=== PATIENT | male | born 1995 | race Caucasian/White ===

== ENCOUNTER 2020-01-27 16:38 | Emergency (ER) | payer BC, SELFPAY ==
[2020-01-27 17:40] VITALS: BP 136/90; PULSE 118; RESP 16; TEMP 36.1; O2SAT 97
[2020-01-27 17:48] LABS: Glucose Point of Care 197 (65-105)
[2020-01-27 18:09] LABS: Alanine Aminotransferase 201 U/L (4-50); Albumin Level 4.6 g/dL (3.5-5.1); Alkaline Phosphatase 90 U/L (38-126); Anion Gap 11 mmol/L (8-16); Aspartate Amino Transferase 191 U/L (17-59); Bilirubin,Total 0.5 mg/dL (0.2-1.3); Blood Urea Nitrogen 11 mg/dL (9-20); Calcium 10.2 mg/dL (8.4-10.2); Carbon Dioxide 32 mmol/L (22-30); Chloride 94 mmol/L (98-107); Estimated CRCL calculation 143 ml/min; Estimated Glomerular Filt Rate > 60; Glucose 189 mg/dL (75-110); Phosphorus 3.5 mg/dL (2.5-4.5); Sodium 137 mmol/L (137-145)
[2020-01-27 18:11] VITALS: BP 142/102; PULSE 115; RESP 22; O2SAT 99
[2020-01-27 18:12] LABS: Alveolar/Arterial O2 Gradient 15.6 mmHg; Base Excess ABG 2.1 mEq/l (+/-2.0); Carboxyhemoglobin 0.7 % THb (0-2.0); Fractional Inspired Oxygen 21 %; HCO3 ABG 26.1 mEq/l (22.0-26.0); Methemoglobin ABG 0.5 %THb (0-1.5); Oxygen Content ABG 24.4 %vol (16.0-22.0); Oxyhemoglobin 95.9 % THb (90.0-100.0); PO2 ABG 87.4 mmHg (80.0-100.0); PO2 FiO2 Ratio Arterial Blood 4.16 %; Reduced Hemoglobin 2.9 %THb (0-5.0); Total Hemoglobin 18.1 g/dL (12.0-18.0); pH ABG 7.444 (7.350-7.450)
[2020-01-27 18:13] LABS: Device ROOM AIR; Modified Allen's Test Pass; Site Drawn RIGHT RADIAL
[2020-01-27 18:15] LABS: Add Urine Microscopic? YES; Appearance Urine Clear (Clear); Bilirubin Urine Negative (Negative); Blood Urine 1+ (Negative); Color Urine Straw (Yellow); Glucose Urine UA 2+ mg/dL (Negative); Ketones Urine Negative (Negative); Leukocyte Esterase Ur Negative LEU/UL (Negative); Nitrate Urine Negative (Negative); Protein Urine Negative (Negative); RBC Urine 0-2 /hpf (0-2); Specific Grav Ur 1.006 (1.001-1.035); Urobilinogen Urine Negative mg/dL (<2.0); WBC Urine 0-3 /hpf
[2020-01-27] MEDS: SODIUM CHLORIDE 0.9% IV 1,000 ML 999 ML IV CONT (18:16)
--- NOTE | 2020-01-27 18:19 | ED.GENADULT ---
HPI - General Adult General Chief complaint: Unspecified Stated complaint: Possible DKA Time Seen by Provider: 01/27/20 17:55 Source: patient Mode of arrival: ambulatory Limitations: no limitations History of Present Illness HPI narrative: Patient complaining of I might be still in DKA , described as I feel lightheaded and not feeling as well started yesterday. Patient states that he took his urine ketones and it showed large yesterday so he drank a lot of water took his insulin but he usually does and this morning when he checked his ketones it was actually negative. This afternoon he started to be felt a little unwell so I checked my ketones again and it showed small , so came here to make sure he is not in DKA. Patient denies any headache, dizziness, nausea vomiting, diarrhea or fever. Patient denies any chest pain, shortness of breath or abdominal pain. Related Data Home Medications Medication Instructions Recorded Confirmed insulin aspart U-100 100 unit/mL 1 unit SUB-Q TID ml 03/29/19 05/30/19 (3 mL) subcutaneous pen insulin glargine 100 unit/mL (3 25 unit SUB-Q DAILY 03/29/19 05/30/19 mL) subcutaneous pen Allergies Allergy/AdvReac Type Severity Reaction Status Date / Time No Known Allergies Allergy Verified 01/27/20 18:13 Review of Systems Review of Systems: All systems reviewed & are unremarkable except as noted in HPI and below Constitutional: Constitutional: Denies body ache(s), Denies chills, Denies excessive sweating, Denies fatigue, Denies fever(s), Denies headache(s), Denies lethargy, Denies malaise, Denies weakness and Denies weight loss Eyes: Eyes: Denies blurry vision, Denies change in vision and Denies loss of vision ENT: Denies dizziness, Denies ear discharge, Denies headache(s), Denies lip swelling, Denies epistaxis, Denies nasal congestion, Denies neck pain, Denies throat swelling and Denies tongue swelling Cardiovascular: Cardiovascular: Denies chest pain, Denies chest pain at rest, Denies chest pain with activity, Denies diaphoresis, Denies rapid heart rate, Denies edema, Denies irregular heart rhythm, Denies lightheadedness, Denies palpitations, Denies dyspnea and Denies dyspnea on exertion Respiratory: Respiratory: Denies chest congestion, Denies cough, Denies hemoptysis, Denies dyspnea and Denies dyspnea on exertion Gastrointestinal: Gastrointestinal: Denies abdominal pain, Denies melena, Denies hematochezia, Denies diarrhea, Denies nausea, Denies vomiting and Denies hematemesis Musculoskeletal: Musculoskeletal: Denies abnormal gait, Denies deformity, Denies joint swelling, Denies limited range of motion, Denies neck pain and Denies numbness Neurologic: Denies Abnormal speech present, Denies abnormal gait, Denies confusion, Denies dizziness, Denies headache(s), Denies focal weakness, Denies loss of vision, Denies numbness, Denies Other visual disturbances, Denies Sensory deficit (Neuro) and Denies weakness Psychiatric: Psychiatric: Denies confusion, Denies depression, Denies auditory hallucinations, Denies homicidal ideation and Denies suicidal ideation Endocrine: Endocrine: Denies cold intolerance, Denies excessive sweating, Denies fatigue, Denies heat intolerance and Denies palpitations Hematologic/Lymphatic: Hematologic/Lymphatic: Denies easy bleeding and Denies easy bruising Allergic/Immunologic: Allergic/Immunologic: Denies lip swelling, Denies throat swelling and Denies tongue swelling PMFSH Past Medical History Medical History (Updated 01/27/20 @ 20:56 by Alexander Lucio MD) Acute bronchitis Cough Diabetes Diabetes mellitus, insulin dependent (IDDM), uncontrolled Mixed hyperlipidemia Type 1 diabetes mellitus with hyperglycemia, without long-term current use of insulin Type 1 diabetes mellitus with long-term current use of insulin URI (upper respiratory infection) Vitamin D insufficiency Social History Social History (Updated 03/29/19 @ 10:56 by Sadia Barrientos MA)
[2020-01-27 18:32] LABS: Basophils Absolute Auto 0.1 K/mm3 (0.0-0.1); Eosinophils Absolute Auto 0.1 K/mm3 (0-0.3); Eosinophils Percent Auto 1.2 % (0-4.4); Hematocrit 50.3 % (42.0-52.0); Hemoglobin 17.9 g/dL (14.0-18.0); Immature Granulocyte Absolute 0.04 K/mm3 (0.00-0.031); Immature Granulocyte Percent A 0.7 % (0-0.5); Lymphocytes Absolute Auto 1.44 K/mm3 (0.9-3.2); Lymphocytes Percent Auto 24.2 % (18.3-44.2); Mean Corpuscular HGB Conc 35.6 g/dl (32-36); Mean Corpuscular Hemoglobin 30.6 pg (26-34); Mean Platelet Volume 8.7 fl (7.4-10.4); Monocytes Absolute Auto 0.5 K/mm3 (0.1-0.6); Monocytes Percent Auto 8.1 % (2.6-8.5); Neutrophils Absolute Auto 3.9 K/mm3 (1.3-6.7); Neutrophils Percent Auto 64.8 % (45.5-73.1); Platelet Count Result 380 k/mm3 (150-375); Red Blood Count 5.85 M/mm3 (4.6-6.20); Red Cell Distribution Width 11.7 % (11.5-14.5)
[2020-01-27 18:50] LABS: Beta-Hydroxybutyrate/Acetoacetate 0.33 mmol/L (0.02-0.27)
[2020-01-27 19:03] VITALS: BP 117/91; PULSE 94; RESP 20; O2SAT 98
[2020-01-27] MEDS: LACTATED RINGERS 1,000 ML 999 ML IV CONT (20:01)
[2020-01-27 20:04] VITALS: BP 103/87; PULSE 127; RESP 18; O2SAT 97
[2020-01-27 21:10] VITALS: BP 110/74; PULSE 84; RESP 20; O2SAT 98
[2020-01-27 21:18] VITALS: BP 110/74; PULSE 93; RESP 14; O2SAT 97
== END 2020-01-27 21:20 | disposition home or self-care (01) ==
PROVIDERS: Emergency Provider Emergency Medicine; PCP Family Medicine
DX: E10.65 Type 1 diabetes mellitus with hyperglycemia (principal); Z79.4 Long term (current) use of insulin; E78.2 Mixed hyperlipidemia
CPT/HCPCS: 36415; 36600; 80053; 81001; 82010; 82375; 82805; 82948; 83050; 83735; 84100; 85025; 96360; 96361; 99283; J7030; J7120

== ENCOUNTER 2020-03-18 13:21 | Emergency (ER) | payer BC, SELFPAY ==
[2020-03-18 13:34] LABS: Glucose Point of Care 98 (65-105)
[2020-03-18 13:37] VITALS: BP 144/94; PULSE 108; RESP 16; TEMP 36.8; O2SAT 98
--- NOTE | 2020-03-18 13:46 | ED.GENADULT ---
HPI - General Adult General Chief complaint: Nausea/Vomiting/Diarrhea Stated complaint: vomiting/diabetic Time Seen by Provider: 03/18/20 13:33 Source: patient History of Present Illness HPI narrative: Patient is a 24 y/o male complaining of nausea and vomiting starting this morning. He states that he vomited 4 times and it's mostly liquid. There is no alleviating or exacerbating factor. He denies any abdominal pain, diarrhea or SOB. He has type 1 diabetes. Related Data Home Medications Medication Instructions Recorded Confirmed insulin aspart U-100 100 unit/mL 1 unit SUB-Q TID ml 03/29/19 05/30/19 (3 mL) subcutaneous pen insulin glargine 100 unit/mL (3 25 unit SUB-Q DAILY 03/29/19 05/30/19 mL) subcutaneous pen Allergies Allergy/AdvReac Type Severity Reaction Status Date / Time No Known Allergies Allergy Verified 03/18/20 13:40 Review of Systems Constitutional: Constitutional: Denies chills, Denies fever(s), Denies headache(s) and Denies weakness Eyes: Eyes: Denies blurry vision ENT: Denies headache(s) and Denies neck pain Cardiovascular: Cardiovascular: Denies chest pain and Denies dyspnea Respiratory: Respiratory: Denies cough and Denies dyspnea Gastrointestinal: Gastrointestinal: Denies abdominal pain, Denies diarrhea, Reports nausea and Reports vomiting Genitourinary: Genitourinary: Denies hematuria and Denies dysuria Musculoskeletal: Musculoskeletal: Denies back pain and Denies neck pain Neurologic: Denies headache(s) and Denies weakness PMFSH Past Medical History Medical History Acute bronchitis Cough Diabetes Diabetes mellitus, insulin dependent (IDDM), uncontrolled Elevated liver enzymes Mixed hyperlipidemia Type 1 diabetes mellitus with hyperglycemia, without long-term current use of insulin Type 1 diabetes mellitus with long-term current use of insulin URI (upper respiratory infection) Vitamin D insufficiency Social History Social History Smoking status: Never smoker Alcohol intake: current Substance use: never Gender identity (if verbalized by the patient): Male Exam Const: General: no acute distress and well developed Orientation/consciousness: oriented to person, oriented to place, oriented to time and patient oriented x3 HENMT: Head: normocephalic Ears: external ears normal General nose exam: Normal external nose present Eyes: General: appearance normal, both eyes and all related structures Conjunctivae: conjunctivae normal Neck: Neck: normal visual inspection and full ROM Chest: Chest palpation & inspection: normal inspection of the chest and no tenderness Resp: Effort & Inspection: normal respiratory effort Auscultation: clear to auscultation bilaterally Cardio: Rate: regular rate Rhythm: regular rhythm GI: GI Palp: No abdominal tenderness and Yes Soft to palpation Skin: General skin exam: normal color and turgor normal Neuro: General: oriented to person, oriented to place, oriented to time and patient oriented x3 Cognition (Neuro): normal cognition Extrem: General: normal to inspection, full ROM and no pedal edema Psych: Appearance: grossly normal Mental Status: mental status grossly normal Affect: normal affect Course Reevaluation(s) Reevaluation #1: Rechecked. Patient feels well. He has no nausea or vomiting. Date: 03/18/20 Time: 15:58 Vital Signs Vital signs: Vital Signs Temperature 36.8 C 03/18/20 13:37 Pulse Rate 108 H 03/18/20 13:37 Respiratory Rate 16 03/18/20 13:37 Blood Pressure 144/94 H 03/18/20 13:37 Pulse Oximetry 98 03/18/20 13:37 Temperature 36.8 C 03/18/20 13:37 Pulse Rate 108 H 03/18/20 13:37 Respiratory Rate 16 03/18/20 13:37 Blood Pressure 144/94 H 03/18/20 13:37 Pulse Oximetry 98 03/18/20 13:37 Medical Decision Making [facility] Narrative Medical decision making narrative: Maryellen ghosh
[2020-03-18 13:49] LABS: Basophils Absolute Auto 0.1 K/mm3 (0.0-0.1); Basophils Percent Auto 1.1 % (0.2-1.2); Eosinophils Absolute Auto 0.1 K/mm3 (0-0.3); Eosinophils Percent Auto 1.7 % (0-4.4); Hematocrit 46.8 % (42.0-52.0); Hemoglobin 16.7 g/dL (14.0-18.0); Immature Granulocyte Absolute 0.01 K/mm3 (0.00-0.031); Immature Granulocyte Percent A 0.2 % (0-0.5); Lymphocytes Absolute Auto 1.98 K/mm3 (0.9-3.2); Lymphocytes Percent Auto 30.2 % (18.3-44.2); Mean Corpuscular HGB Conc 35.7 g/dl (32-36); Mean Corpuscular Hemoglobin 29.8 pg (26-34); Mean Corpuscular Volume 83.4 fl (80-100); Mean Platelet Volume 8.8 fl (7.4-10.4); Monocytes Absolute Auto 0.5 K/mm3 (0.1-0.6); Monocytes Percent Auto 7.5 % (2.6-8.5); Neutrophils Absolute Auto 3.9 K/mm3 (1.3-6.7); Neutrophils Percent Auto 59.3 % (45.5-73.1); Platelet Count Result 379 k/mm3 (150-375); Red Blood Count 5.61 M/mm3 (4.6-6.20); Red Cell Distribution Width 11.2 % (11.5-14.5); White Blood Count 6.6 K/mm3 (4.5-10.0)
[2020-03-18 14:05] LABS: Beta-Hydroxybutyrate/Acetoacetate 1.61 mmol/L (0.02-0.27)
[2020-03-18] MEDS: SODIUM CHLORIDE 0.9% IV 1,000 ML 999 ML IV CONT (14:11)
[2020-03-18] MEDS: ONDANSETRON INJ 4 MG/2 ML VIAL IV PUSH (14:12)
[2020-03-18 14:15] VITALS: BP 142/90; PULSE 102; RESP 20; O2SAT 96
[2020-03-18 14:29] LABS: Alanine Aminotransferase 57 U/L (4-50); Albumin Level 4.9 g/dL (3.5-5.1); Alkaline Phosphatase 97 U/L (38-126); Anion Gap 10 mmol/L (8-16); Aspartate Amino Transferase 53 U/L (17-59); Bilirubin,Total 0.9 mg/dL (0.2-1.3); Blood Urea Nitrogen 13 mg/dL (9-20); Carbon Dioxide 27 mmol/L (22-30); Chloride 95 mmol/L (98-107); Estimated CRCL calculation 164 ml/min; Estimated Glomerular Filt Rate > 60; Glucose 96 mg/dL (75-110); Sodium 132 mmol/L (137-145)
[2020-03-18 14:45] VITALS: BP 137/81; PULSE 92; RESP 18; O2SAT 98
[2020-03-18 14:45] LABS: Potassium 3.9 mmol/L (3.4-5.0)
[2020-03-18 15:15] VITALS: BP 141/84; PULSE 97; RESP 20; O2SAT 99
[2020-03-18 15:35] LABS: Glucose Point of Care 58 (65-105)
--- NOTE | 2020-03-18 15:35 | PC.NURSE ---
blood sugar is 58 1535
[2020-03-18 15:45] VITALS: BP 136/84; PULSE 114; RESP 14; O2SAT 98
--- NOTE | 2020-03-18 16:05 | PC.NURSE ---
repeat FSBS 167. patient with no further N/V. ok to be discharged.
[2020-03-18 16:23] LABS: Glucose Point of Care 168 (65-105)
== END 2020-03-18 16:25 | disposition home or self-care (01) ==
PROVIDERS: Emergency Medicine; Emergency Provider Emergency Medicine; PCP Family Medicine
DX: R11.2 Nausea with vomiting, unspecified (principal); E10.9 Type 1 diabetes mellitus without complications; Z79.4 Long term (current) use of insulin; E78.2 Mixed hyperlipidemia
CPT/HCPCS: 36415; 80053; 82010; 82948; 85025; 96361; 96374; 99284; J2405; J7030

== ENCOUNTER 2020-05-29 12:52 | Outpatient (RCR) | payer BC, SELFPAY ==
[2020-05-29] MEDS: ACETAMINOPHEN 325 MG TABLET 650 MG PO (13:33)
[2020-05-29] MEDS: FAMOTIDINE 20 MG TABLET PO (13:33)
[2020-05-29] MEDS: diphenhydrAMINE HCl CAP 25 MG CAPSULE PO (13:33)
[2020-05-29 13:48] VITALS: BP 132/86; PULSE 90; RESP 18; TEMP 36.8; O2SAT 98
[2020-05-29 15:10] VITALS: BP 143/86; PULSE 81; RESP 18; O2SAT 99
--- NOTE | 2020-05-30 09:44 | PC.NURSE ---
follow up call on covid infusion on 05-29-20. Patient states he is feeling much better with no side effects.
== END 2020-05-30 15:41 | disposition home or self-care (01) ==
LOC: AMCINF 12:52
PROVIDERS: PCP Family Medicine; Visit Provider Internal Medicine Hematology & Oncology
DX: Z23 Encounter for immunization (principal); U07.1 COVID-19; E11.9 Type 2 diabetes mellitus without complications
CPT/HCPCS: A9270; M0239; Q0239

== ENCOUNTER 2020-06-10 10:12 | Emergency (ER) | payer BC, SELFPAY ==
[2020-06-10] VITALS (17 sets, daily range): BP systolic 130–160; BP diastolic 73–103; PULSE 81–110; RESP 16; TEMP 36.2; O2SAT 97
--- NOTE | ~2020-06-10 | XR_ITS ---
EXAMINATION: XR chest 1V portable 06/10/2020 10:54 INDICATION: Cough PROCEDURE: AP portable chest COMPARISON: 05/22/2018 FINDINGS: The lungs are clear. The cardiomediastinal silhouette is within normal limits. There are no pleural effusions. There is no pneumothorax suspected. IMPRESSION: 1: NO ACUTE CARDIOPULMONARY DISEASE. Reviewed, dictated and finalized at location A.
[2020-06-10] MEDS: SODIUM CHLORIDE 0.9% IV 1,000 ML 999 ML IV CONT ×2 (10:40→12:29)
[2020-06-10 11:00] LABS: Alveolar/Arterial O2 Gradient 12.7 mmHg; Base Excess ABG -0.4 mEq/l (+/-2.0); Carboxyhemoglobin 0.6 % THb (0-2.0); Fractional Inspired Oxygen 21 %; HCO3 ABG 23.8 mEq/l (22.0-26.0); Methemoglobin ABG 0.4 %THb (0-1.5); Oxygen Content ABG 21.6 %vol (16.0-22.0); Oxygen Saturation ABG 97.1 % (95.0-100.0); Oxyhemoglobin 95.8 % THb (90.0-100.0); PCO2 ABG 38.1 mmHg (35.0-45.0); PO2 ABG 91.4 mmHg (80.0-100.0); PO2 FiO2 Ratio Arterial Blood 4.35 %; Reduced Hemoglobin 3.2 %THb (0-5.0); pH ABG 7.414 (7.350-7.450)
[2020-06-10 11:01] LABS: Device ROOM AIR; Modified Allen's Test Pass; Site Drawn RIGHT RADIAL
[2020-06-10 11:20] LABS: Basophils Absolute Auto 0.1 K/mm3 (0.0-0.1); Basophils Percent Auto 0.8 % (0.2-1.2); Eosinophils Absolute Auto 0.2 K/mm3 (0-0.3); Eosinophils Percent Auto 2.5 % (0-4.4); Hematocrit 45.6 % (42.0-52.0); Hemoglobin 15.8 g/dL (14.0-18.0); Immature Granulocyte Absolute 0.02 K/mm3 (0.00-0.031); Immature Granulocyte Percent A 0.3 % (0-0.5); Lymphocytes Percent Auto 29.8 % (18.3-44.2); Mean Corpuscular HGB Conc 34.6 g/dl (32-36); Mean Corpuscular Hemoglobin 29.9 pg (26-34); Mean Corpuscular Volume 86.4 fl (80-100); Mean Platelet Volume 8.7 fl (7.4-10.4); Monocytes Absolute Auto 0.4 K/mm3 (0.1-0.6); Monocytes Percent Auto 7.1 % (2.6-8.5); Neutrophils Absolute Auto 3.6 K/mm3 (1.3-6.7); Neutrophils Percent Auto 59.5 % (45.5-73.1); Platelet Count Result 441 k/mm3 (150-375); Red Blood Count 5.28 M/mm3 (4.6-6.20); Red Cell Distribution Width 11.9 % (11.5-14.5); White Blood Count 6.1 K/mm3 (4.5-10.0)
--- NOTE | 2020-06-10 11:35 | ED.GENADULT ---
HPI - General Adult General Chief complaint: Shortness of Breath/Dyspnea Stated complaint: cough, short of breath, left lung pain Time Seen by Provider: 06/10/20 10:29 Source: patient and old records reviewed Mode of arrival: ambulatory Limitations: no limitations History of Present Illness HPI narrative: Patient is a 24-year-old male who presents to emergency department for evaluation of left-sided chest pain that occurs with deep breathing and coughing patient notes history of e-cigarette use and also had Covid and has since had a cough that he has been unable to get rid of the cough since being diagnosed with Covid patient denies any URI symptoms or other complaints at this time and is otherwise in the room in no distress resting comfortably patient has not taken anything for his symptoms Related Data Home Medications Medication Instructions Recorded Confirmed insulin aspart U-100 100 unit/mL 1 unit SUB-Q TID ml 03/29/19 05/29/20 (3 mL) subcutaneous pen insulin glargine 100 unit/mL (3 25 unit SUB-Q DAILY 03/29/19 05/29/20 mL) subcutaneous pen azithromycin 250 mg tablet See Rx Instructions PO .COMPLEX 05/27/20 05/29/20 Allergies Allergy/AdvReac Type Severity Reaction Status Date / Time No Known Allergies Allergy Verified 03/18/20 13:40 Review of Systems Review of Systems: All systems reviewed & are unremarkable except as noted in HPI and below PMFSH Past Medical History Medical History Acute bronchitis Cough COVID-19 (05/26/20) Diabetes Diabetes mellitus, insulin dependent (IDDM), uncontrolled Elevated liver enzymes Mixed hyperlipidemia Pharyngitis Type 1 diabetes mellitus with hyperglycemia, without long-term current use of insulin Type 1 diabetes mellitus with long-term current use of insulin URI (upper respiratory infection) Vitamin D insufficiency Social History Social History Smoking status: Never smoker Tobacco type: e-cigarettes/vaping Alcohol intake: current Substance use: never Gender identity (if verbalized by the patient): Male Spiritual care concerns: No Exam Narrative: Exam Narrative: GENERAL: Well-appearing, well-nourished, and in no acute distress. HEAD: Normocephalic, atraumatic. EYES: PERRLA and EOMI. ENT: Nares clear, no rhinorrhea or epistaxis. Mucous membranes moist. CHEST: Clear to auscultation. No respiratory distress. No wheezes rales or rhonchi HEART: Regular rate and rhythm. No murmur heard. Normal peripheral pulses. ABDOMEN: Soft, nontender, nondistended EXTREMITIES: Normal range of motion. No edema. SKIN: Warm, dry, no rash. NEURO: No focal deficits. Alert and oriented x3. PSYCH: Normal mood and affect. Course Course Emergency Course: Patient in the room no high risk changes in his evaluation likely pleuritic chest pain secondary to his bronchitis given his recent bout with Covid and his continued cough patient denies other complaints or concerns and is otherwise resting in the room in no distress felt appropriate for outpatient reevaluation by his primary care doctor patient agrees with this plan and will follow up as instructed and is also been given reasons to return Vital Signs Vital signs: Vital Signs Temperature 97.1 F L 06/10/20 10:18 Pulse Rate 97 06/10/20 10:18 Respiratory Rate 16 06/10/20 10:18 Blood Pressure 130/73 06/10/20 10:18 Pulse Oximetry 97 06/10/20 10:18 Temperature 97.1 F L 06/10/20 10:18 Pulse Rate 92 06/10/20 10:22 Respiratory Rate 16 06/10/20 10:18 Blood Pressure 130/73 06/10/20 10:18 Pulse Oximetry 97 06/10/20 10:18 Medical Decision Making MDM Narrative Medical decision making narrative: Patient in the room no distress resting comfortably felt that he likely has pleuritis given the pleuritic nature of his pain no high risk changes in the blood work or imaging will be discharged h
[2020-06-10 11:39] LABS: Alanine Aminotransferase 53 U/L (4-50); Albumin Level 4.4 g/dL (3.5-5.1); Alkaline Phosphatase 94 U/L (38-126); Anion Gap 9 mmol/L (8-16); Aspartate Amino Transferase 51 U/L (17-59); Beta-Hydroxybutyrate/Acetoacetate 0.86 mmol/L (0.02-0.27); Blood Urea Nitrogen 13 mg/dL (9-20); Calcium 9.4 mg/dL (8.4-10.2); Carbon Dioxide 29 mmol/L (22-30); Chloride 97 mmol/L (98-107); Estimated CRCL calculation 143 ml/min; Estimated Glomerular Filt Rate > 60; Glucose 343 mg/dL (75-110); Magnesium 1.5 mg/dL (1.6-2.3); Phosphorus 3.4 mg/dL (2.5-4.5); Potassium 4.7 mmol/L (3.4-5.0); Sodium 135 mmol/L (137-145)
[2020-06-10] MEDS: MAGNESIUM SULF 2 GM/WATER 50ML 2 GM/50 ML BAG IVPB (12:30)
[2020-06-10 12:46] LABS: Add Urine Microscopic? YES; Appearance Urine Clear (Clear); Bilirubin Urine Negative (Negative); Blood Urine Negative (Negative); Color Urine Straw (Yellow); Glucose Urine UA 3+ mg/dL (Negative); Ketones Urine Trace mg/dL (Negative); Leukocyte Esterase Ur Negative LEU/UL (Negative); Nitrate Urine Negative (Negative); Protein Urine Negative (Negative); RBC Urine 0-2 /hpf (0-2); Specific Grav Ur 1.022 (1.001-1.035); Urobilinogen Urine Negative mg/dL (<2.0); WBC Urine 0-3 /hpf
== END 2020-06-10 13:26 | disposition home or self-care (01) ==
PROVIDERS: Emergency Medicine Emergency Medical Services; Emergency Provider Emergency Medicine; PCP Family Medicine
DX: J40 Bronchitis, not specified as acute or chronic (principal); E10.9 Type 1 diabetes mellitus without complications; Z79.4 Long term (current) use of insulin; Z86.16 Personal history of COVID-19; E78.2 Mixed hyperlipidemia; E55.9 Vitamin D deficiency, unspecified; F17.290 Nicotine dependence, other tobacco product, uncomplicated
CPT/HCPCS: 36415; 36600; 71045; 80053; 81001; 82010; 82375; 82805; 83050; 83735; 84100; 85025; 96361; 96365; 99284; J3475; J7030

== ENCOUNTER 2020-09-16 00:34 | Emergency (ER) | payer BC, SELFPAY ==
[2020-09-16 00:40] VITALS: BP 154/96; PULSE 112; RESP 30; TEMP 36.5; O2SAT 98
--- NOTE | 2020-09-16 00:46 | PC.NURSE ---
Pt presents to ED with suspicion that he may be in DKA. Pt states he has had mulitple episodes if emesis x6+ today. States he checked his ketones that were elvevated and glucose was ranging in the 300s. Pt arrived to ED alert and oriented x4 and in no obvious distress and was able to walk to room without difficulty. Breathing noted to be even and unlabored with O2 saturation of 99% on room air. Significant other present at bedside. EDMD presented to bedside. Pt resting on cart in its lowest position with call button and personal items within reach. Pt advised to press call button for assistance. Glucose 73 upon arrival to ED.
[2020-09-16 00:50] LABS: Glucose Point of Care 73 mg/dl (65-105)
--- NOTE | 2020-09-16 00:53 | PC.NURSE ---
Pt provided urinal to provide urine specimen.
--- NOTE | 2020-09-16 01:05 | ED.RECABL ---
HPI - Recheck/Abnormal Lab/Rx General Chief Complaint: Recheck/Abnormal Lab/Rx Stated Complaint: dka? Time Seen by Provider: 09/16/20 00:38 History of Present Illness HPI narrative: He awoke this evening with nausea, vomiting. He checked his glucose log and found that he had been running in the 300s. He was positive on home ketone check. He attempted to drink water, but he could not keep it down. He was concerned that he may be in DKA. He does admit to drinking a small amount of alcohol earlier. Related Data Home Medications Medication Instructions Recorded Confirmed insulin aspart U-100 100 unit/mL 1 unit SUB-Q TID ml 03/29/19 09/04/20 (3 mL) subcutaneous pen insulin glargine 100 unit/mL (3 25 unit SUB-Q DAILY 03/29/19 09/04/20 mL) subcutaneous pen Allergies Allergy/AdvReac Type Severity Reaction Status Date / Time No Known Allergies Allergy Verified 03/18/20 13:40 Review of Systems Review of Systems: All systems reviewed & are unremarkable except as noted in HPI and below Constitutional: Constitutional: Denies chills and Denies fever(s) Cardiovascular: Cardiovascular: Denies chest pain Respiratory: Respiratory: Denies dyspnea Gastrointestinal: Gastrointestinal: Denies diarrhea, Reports nausea and Reports vomiting Genitourinary: Genitourinary: Reports no additional male genitourinary complaints Neurologic: Reports system reviewed and no additional complaints, except as documented [facility] Past Medical History Medical History Acute bronchitis Cough COVID-19 (05/26/20) Diabetes Diabetes mellitus, insulin dependent (IDDM), uncontrolled Elevated liver enzymes GERD (gastroesophageal reflux disease) Insomnia Medial tibial stress syndrome Mixed hyperlipidemia Pharyngitis Tinea pedis Type 1 diabetes mellitus with hyperglycemia, without long-term current use of insulin Type 1 diabetes mellitus with long-term current use of insulin URI (upper respiratory infection) Vitamin D insufficiency Social History Social History Smoking status: Current some day smoker Tobacco type: e-cigarettes/vaping Alcohol intake: current Substance use: never Gender identity (if verbalized by the patient): Male Spiritual care concerns: No Exam Const: General: no acute distress and alert Orientation/consciousness: patient oriented x3 HENMT: Head: normal to inspection Resp: Effort & Inspection: normal respiratory effort Auscultation: clear to auscultation bilaterally Cardio: Rate: tachycardic Rhythm: regular rhythm GI: GI Palp: Yes Soft to palpation and No Tenderness to palpation present (GI) Skin: General skin exam: normal color Neuro: General: patient oriented x3, moves all extremities, no focal motor deficits and CN's II-XI intact bilaterally Speech: normal speech Extrem: General: normal to inspection and no edema Course Vital Signs Vital signs: Vital Signs Temperature 36.5 C 09/16/20 00:40 Pulse Rate 112 H 09/16/20 00:40 Respiratory Rate 30 H 09/16/20 00:40 Blood Pressure 154/96 H 09/16/20 00:40 Pulse Oximetry 98 09/16/20 00:40 Temperature 36.5 C 09/16/20 00:40 Pulse Rate 98 09/16/20 04:00 Respiratory Rate 20 09/16/20 04:00 Blood Pressure 154/96 H 09/16/20 04:00 Pulse Oximetry 98 09/16/20 04:00 MDM - Recheck/Abnormal Lab/Rx MDM Narrative Medical decision making narrative: Labs largely normal. No anion gap. Most likely combination of dehydration and alcohol. Differential Diagnosis Differential diagnosis: Likely other (DKA, dehydration, sepsis) Medical Records Attestation: I reviewed the patient's medical records. Lab Data Attestation: I reviewed the patient's lab results. Result diagrams: 09/16/20 00:57 09/16/20 00:57 Labs: Lab Results 09/16/20 09/16/20 09/16/20 Range/Units 00:48 00:57 00:57 WBC 6.6
[2020-09-16 01:14] LABS: Alanine Aminotransferase 34 U/L (4-50); Albumin Level 5.1 g/dL (3.5-5.1); Alkaline Phosphatase 79 U/L (38-126); Anion Gap 13 mmol/L (8-16); Aspartate Amino Transferase 41 U/L (17-59); Bilirubin,Total 0.4 mg/dL (0.2-1.3); Blood Urea Nitrogen 14 mg/dL (9-20); Calcium 10.5 mg/dL (8.4-10.2); Carbon Dioxide 27 mmol/L (22-30); Chloride 99 mmol/L (98-107); Estimated CRCL calculation 126 ml/min; Estimated Glomerular Filt Rate > 60; Glucose 79 mg/dL (75-110); Magnesium 1.7 mg/dL (1.6-2.3); Phosphorus 3.8 mg/dL (2.5-4.5); Potassium 3.8 mmol/L (3.4-5.0); Sodium 139 mmol/L (137-145)
[2020-09-16 01:16] LABS: Basophils Absolute Auto 0.1 K/mm3 (0.0-0.1); Basophils Percent Auto 0.8 % (0.2-1.2); Eosinophils Absolute Auto 0.3 K/mm3 (0-0.3); Eosinophils Percent Auto 3.9 % (0-4.4); Hematocrit 49.4 % (42.0-52.0); Immature Granulocyte Absolute 0.02 K/mm3 (0.00-0.031); Immature Granulocyte Percent A 0.3 % (0-0.5); Lymphocytes Absolute Auto 2.13 K/mm3 (0.9-3.2); Lymphocytes Percent Auto 32.1 % (18.3-44.2); Mean Corpuscular HGB Conc 34.4 g/dl (32-36); Mean Corpuscular Hemoglobin 30.1 pg (26-34); Mean Corpuscular Volume 87.6 fl (80-100); Mean Platelet Volume 8.8 fl (7.4-10.4); Monocytes Absolute Auto 0.6 K/mm3 (0.1-0.6); Monocytes Percent Auto 8.4 % (2.6-8.5); Neutrophils Absolute Auto 3.6 K/mm3 (1.3-6.7); Neutrophils Percent Auto 54.5 % (45.5-73.1); Platelet Count Result 381 k/mm3 (150-375); Red Blood Count 5.64 M/mm3 (4.6-6.20); Red Cell Distribution Width 11.8 % (11.5-14.5); White Blood Count 6.6 K/mm3 (4.5-10.0)
[2020-09-16 01:19] LABS: Beta-Hydroxybutyrate/Acetoacetate 0.09 mmol/L (0.02-0.27)
--- NOTE | 2020-09-16 01:20 | PC.NURSE ---
pt states he is unable to urinate at this time. Pt has specimen cup and is aware of need for sample and voices his understanding.
[2020-09-16] MEDS: SODIUM CHLORIDE 0.9% IV 2,000 ML 999 ML IV CONT (01:21)
[2020-09-16 01:27] LABS: Platelet Estimate Adequate (Adequate); Stomatocytes 1+ (NORMAL)
--- NOTE | 2020-09-16 02:12 | PC.NURSE ---
Pt resting on cart in its lowest position with stable vitals and in on obvious distress. Pt requests water; will notify EDMD. Pt remains alert and oriented x4. S/o remains at bedside. Call button and personal items within reach. Advised to press call button for assistance.
--- NOTE | 2020-09-16 02:38 | PC.NURSE ---
Urine specimen collected and sent lab.
[2020-09-16 02:55] LABS: Add Urine Microscopic? YES; Appearance Urine Clear (Clear); Bilirubin Urine Negative (Negative); Blood Urine 1+ (Negative); Color Urine Yellow (Yellow); Glucose Urine UA Negative (Negative); Ketones Urine Negative (Negative); Leukocyte Esterase Ur Negative LEU/UL (Negative); Mucus Urine Rare /lpf; Nitrate Urine Negative (Negative); Protein Urine 2+ mg/dL (Negative); RBC Urine 0-2 /hpf (0-2); Specific Grav Ur 1.025 (1.001-1.035); Squamous Epithelial Cell Urine Rare /hpf (Few); WBC Urine 0-3 /hpf
--- NOTE | 2020-09-16 03:11 | PC.NURSE ---
assumed care of pt at this time.
[2020-09-16 04:00] VITALS: BP 154/96; PULSE 98; RESP 20; O2SAT 98
== END 2020-09-16 04:00 | disposition home or self-care (01) ==
PROVIDERS: Emergency Provider Emergency Medicine; PCP Family Medicine
DX: E86.0 Dehydration (principal); E10.9 Type 1 diabetes mellitus without complications; E78.2 Mixed hyperlipidemia; F17.200 Nicotine dependence, unspecified, uncomplicated; Z79.4 Long term (current) use of insulin
CPT/HCPCS: 36415; 80053; 81001; 82010; 82948; 83735; 84100; 85025; 96360; 96361; 99283; J7030

== ENCOUNTER 2020-12-03 11:04 | Emergency (ER) | payer BC, SELFPAY ==
--- NOTE | 2020-12-03 11:08 | ED.GENADULT ---
HPI - General Adult General Chief complaint: Extremity Problem,Nontraumatic Stated complaint: groin pain Time Seen by Provider: 12/03/20 11:09 Source: patient and RN notes reviewed History of Present Illness HPI narrative: Patient is a 25-year-old male who presents the urgent care with complaints of groin pain. Reports this being a recurrent issue. Patient states that it started yesterday and has improved however he did not go to work because he does a lot of walking at work needs a work note . States that he is taken Advil for the pain. Patient denies of any known injury, trauma or fall. However, patient then explains that he did jump off his front porch yesterday and felt a slight pop in the right groin. No other acute complaints. No acute distress noted. Patient aware of the plan of care. Some parts of this dictation were generated by voice recognition software and may contain typographical and/or grammatical inaccuracies. Related Data Home Medications Medication Instructions Recorded Confirmed insulin aspart U-100 100 unit/mL 1 unit SUB-Q TID ml 03/29/19 09/04/20 (3 mL) subcutaneous pen insulin glargine 100 unit/mL (3 32 unit SUB-Q DAILY ml 10/11/20 mL) subcutaneous pen Allergies Allergy/AdvReac Type Severity Reaction Status Date / Time No Known Allergies Allergy Verified 03/18/20 13:40 Review of Systems Review of Systems: CONSTITUTIONAL: Denies fever, chills, or sweats. EYES: Denies visual changes, redness, or discharge. ENT: Denies rhinorrhea, congestion, sore throat, or otalgia. CARDIOVASCULAR: Denies chest pain, palpitations, or edema. RESPIRATORY: Denies cough or dyspnea. GASTROINTESTINAL: Denies abdominal pain, nausea, vomiting, or diarrhea. GENITOURINARY: Denies dysuria or hematuria. SKIN: Denies rash or itching. MUSCULOSKELETAL: Reports of right groin pain NEUROLOGIC: Denies headache, numbness, or weakness. All other systems reviewed are negative, except as documented in HPI. [facility] Past Medical History Medical History Acute bronchitis Cough COVID-19 (05/26/20) Diabetes Diabetes mellitus, insulin dependent (IDDM), uncontrolled Elevated liver enzymes GERD (gastroesophageal reflux disease) Insomnia Medial tibial stress syndrome Mixed hyperlipidemia Pharyngitis Tinea pedis Type 1 diabetes mellitus with hyperglycemia, without long-term current use of insulin Type 1 diabetes mellitus with long-term current use of insulin URI (upper respiratory infection) Vitamin D insufficiency Social History Social History Smoking status: Current some day smoker Tobacco type: e-cigarettes/vaping Alcohol intake: current Alcohol use details: rarely Substance use: never Gender identity (if verbalized by the patient): Male Sexual Orientation (if Verbalized by the Patient): Straight or Heterosexual Spiritual care concerns: No Comments At the time of my signature, I reviewed and agree with the nursing past medical, surgical, social, and family history. There is no relevant family history pertinent to the patient complaint. Exam Narrative: GENERAL: This is a well-nourished, well-developed patient, in no apparent distress. HEAD: normocephalic, atraumatic. EYES: PERRL. Sclera clear/white. Vision is grossly intact. EARS: External ears normal NOSE: External nose normal with no obvious nasal discharge, nares without redness, no rhinorrhea. THROAT: Mucous membranes moist NECK: Neck supple CARDIOVASCULAR: Regular rate and rhythm without murmurs, gallops, or rubs. RESPIRATORY: Clear to auscultation. Breath sounds equal bilaterally. No wheezes, rales, or rhonchi. SKIN: warm, intact with no suspicious lesions or rash, good texture and turgor. NEURO: awake, alert, and oriented to person, place and time. There were no obvious focal neurologic abnormalities. EXTREMITIES: Range of motion
[2020-12-03 11:13] VITALS: BP 137/77; PULSE 101; RESP 16; TEMP 36.3; O2SAT 100
== END 2020-12-03 11:30 | disposition home or self-care (01) ==
PROVIDERS: Emergency Provider Nurse Practitioner Family; PCP Family Medicine
DX: S76.211A Strain of adductor muscle, fascia and tendon of right thigh, initial encounter (principal); E11.9 Type 2 diabetes mellitus without complications; F17.290 Nicotine dependence, other tobacco product, uncomplicated; Z79.4 Long term (current) use of insulin; X58.XXXA Exposure to other specified factors, initial encounter
CPT/HCPCS: 99212; G0463

== ENCOUNTER 2023-09-01 12:46 | Emergency (ER) | payer BC, SELFPAY ==
[2023-09-01 12:55] VITALS: BP 156/93; PULSE 109; RESP 16; TEMP 36.9; O2SAT 100
[2023-09-01 12:59] VITALS: BP 156/93; PULSE 109; RESP 16; TEMP 36.9; O2SAT 100
--- NOTE | 2023-09-01 13:04 | ED.SKABFB ---
HPI - Skin/Abscess/Foreign Bdy General Chief complaint: Skin/Abscess/Foreign Body Stated complaint: Right Leg Bug Bite Time Seen by Provider: 09/01/23 12:58 Source: patient and RN notes reviewed Mode of arrival: ambulatory Limitations: no limitations History of Present Illness HPI narrative: Patient presents today complaining of possible infected insect bites to the right lateral lower leg that he noticed yesterday. Reports sick itching and mild discomfort. No [id number] treatment prior to arrival. History of type 1 diabetes. Related Data Allergies Allergy/AdvReac Type Severity Reaction Status Date / Time No Known Allergies Allergy Verified 09/01/23 12:54 Review of Systems Review of Systems: CONSTITUTIONAL: Denies body aches, fever, chills, or sweats. EYES: Denies visual changes, redness, or discharge. ENT: Denies rhinorrhea, congestion, sore throat, or otalgia. CARDIOVASCULAR: Denies chest pain, palpitations, or edema. RESPIRATORY: Denies cough or dyspnea. GASTROINTESTINAL: Denies abdominal pain, nausea, vomiting, or diarrhea. GENITOURINARY: Denies dysuria or hematuria. SKIN: + insect bite MUSCULOSKELETAL: Denies back pain, joint pain, or myalgia. NEUROLOGIC: Denies headache, numbness, tingling, or weakness. PSYCH: Denies depression or anxiety. [facility] Past Medical History Medical History Acute bronchitis BMI 26.0-26.9,adult COVID-19 (12/16/21) 05/26/2020; 2nd episode, tested positive 12/17/2021. Elevated liver enzymes GERD (gastroesophageal reflux disease) Insomnia Medial tibial stress syndrome Mixed hyperlipidemia Overweight (BMI 25.0-29.9) Tinea pedis Type 1 diabetes mellitus with long-term current use of insulin URI (upper respiratory infection) Vitamin D insufficiency Social History Social History (Updated 09/01/23 @ 13:10 by Connie Lorenzo, REMIGIO, ) Smoking status: Current every day smoker Tobacco type: e-cigarettes/vaping Alcohol intake: current Drinks per week: 6 Alcohol use details: beers on the weekend Substance use: never Substance use type: does not use Lack of Transportation: No Lack of Food: Never True Current Housing: I Have Housing Concerned About Future Housing: No Difficulty Paying Gas/Electric Bills: No Difficulty Paying for Meds: No Currently Unemployed: No Education: Bachelor's Degree Difficulty w/ Childcare or Family Care: No Living arrangements: with family Gender identity (if verbalized by the patient): Male Sexual Orientation (if Verbalized by the Patient): Straight or Heterosexual Spiritual care concerns: No Comments At time of signature, I have reviewed and agree with nursing past medical, surgical, social and family history unless otherwise noted. Please see nursing chart for further information. There is no relevant family history pertinent to the presenting complaint Exam Narrative: GENERAL: Well-appearing, well-nourished, and in no acute distress. HEAD: Normocephalic, atraumatic. EYES: EOMI. No redness or drainage. Conjunctivae normal. ENT: Mucous membranes pink and moist. NECK: Normal AROM. CHEST: No respiratory distress. EXTREMITIES: Normal range of motion. No edema. SKIN: Warm, dry. Capillary refill normal. Normal skin turgor. 2- 3cm round erythematous lesions with raised edges and central clearing with tiny scabbed centers to the proximal lateral lower leg. Nontender. No fluctuance or induration. No swelling, red streaking. NEURO: No focal deficits. Alert and oriented x3. Gait steady. PSYCH: Normal affect. No signs of depression or anxiety. Course Course Level of Care: Express Care Visit Vital Signs Vital signs: Vital Signs Temperature 98.4 F 09/01/23 12:55 Pulse Rate 109 H 09/01/23 12:55 Respiratory Rate 16 09/01/23 12:55 Blood Pressure 156/93 H 09/01/23 12:55 Pulse Oximetry 100 09/01/23 12:55 Oxygen Delivery
== END 2023-09-01 13:10 | disposition home or self-care (01) ==
PROVIDERS: Emergency Provider Nurse Practitioner; PCP Family Medicine
DX: S80.861A Insect bite (nonvenomous), right lower leg, initial encounter (principal); W57.XXXA Bitten or stung by nonvenomous insect and other nonvenomous arthropods, initial encounter; F17.290 Nicotine dependence, other tobacco product, uncomplicated; K21.9 Gastro-esophageal reflux disease without esophagitis; E78.2 Mixed hyperlipidemia; E10.9 Type 1 diabetes mellitus without complications; Z79.4 Long term (current) use of insulin; Z86.16 Personal history of COVID-19
CPT/HCPCS: 99213; G0463

== ENCOUNTER 2024-07-11 10:04 | Emergency (ER) | payer BC, SELFPAY ==
--- NOTE | ~2024-07-11 | XR_ITS ---
EXAMINATION: XR chest 2V DATE: 07/11/2024 10:29 INDICATION: Cough TECHNIQUE: frontal and lateral views of the chest were obtained. COMPARISON: Chest radiograph dated 06/10/2020 FINDINGS: The lungs remain clear with no focal airspace opacities, pulmonary edema, pleural effusion or pneumot horax. The cardiomediastinal silhouette is normal. Visualized bones and soft tissues are unremarkable . IMPRESSION: 1. Normal chest radiograph. Reviewed, dictated and finalized at location A. IMPRESSION: 1. Normal chest radiograph.
--- NOTE | 2024-07-11 10:07 | ED_ITS ---
HPI - URI/Sore Throat General Chief Complaint: Upper Respiratory Infection Stated Complaint: Cough/Sinus Time Seen by Provider: 07/11/24 10:13 Source: patient, RN notes reviewed and old records reviewed Mode of arrival: ambulatory Limitations: no limitations History of Present Illness HPI Narrative: 28-year-old male presents to the [facility] with complaints of cough, sinus congestion that started 2 days ago. States that he has had intermittent symptoms for about amount. Has taken Mucinex DM and What ever his fiancee has given him. Patient is a type 1 diabetic Onset (ago): day(s) (2) Treatments prior to arrival: cold medicine Related Data Allergies Allergy/AdvReac Type Severity Reaction Status Date / Time No Known Allergies Allergy Verified 07/11/24 10:17 Review of Systems Review of Systems: All systems reviewed & are unremarkable except as noted in HPI and below Constitutional: Constitutional: Reports no additional constitutional complaints ENT: Reports as per HPI Cardiovascular: Cardiovascular: Reports no additional cardiovascular complaints, Denies chest pain and Denies dyspnea Respiratory: Respiratory: Reports as per HPI, Denies chest congestion, Reports cough and Denies dyspnea Musculoskeletal: Musculoskeletal: Reports no additional musculoskeletal complaints Integumentary/Breasts: Skin/Breast: Reports system reviewed and no additional complaints, except as docu PMFSH Past Medical History Medical History BMI 26.0-26.9,adult Overweight (BMI 25.0-29.9) COVID-19 (12/16/21) 05/26/2020; 2nd episode, tested positive 12/17/2021. Insomnia Medial tibial stress syndrome Tinea pedis GERD (gastroesophageal reflux disease) Elevated liver enzymes Vitamin D insufficiency Mixed hyperlipidemia Type 1 diabetes mellitus with long-term current use of insulin Acute bronchitis URI (upper respiratory infection) Social History Social History Smoking status: Current every day smoker Tobacco type: e-cigarettes/vaping Alcohol intake: current Drinks per week: 6 Alcohol use details: beers on the weekend Substance use: never Substance use type: does not use Lack of Transportation: No Lack of Food: Never True Current Housing: I Have Housing Concerned About Future Housing: No Difficulty Paying Gas/Electric Bills: No Difficulty Paying for Meds: No Currently Unemployed: No Education: Bachelor's Degree Difficulty w/ Childcare or Family Care: No Living arrangements: with family Gender identity (if verbalized by the patient): Male Sexual Orientation (if Verbalized by the Patient): Straight or Heterosexual Spiritual care concerns: No Comments At the time of my signature, I reviewed and agree with the nursing past medical, surgical, social, and family history. There is no relevant family history pertinent to the patient complaint. Exam Const: General: cooperative, healthy appearing, comfortable, no acute distress, well developed, alert and well nourished Nutritional Appearance: well nourished Orientation/consciousness: patient oriented x3 Limitations: no limitations HENMT: Head: normal to inspection Ears: hearing grossly normal bilaterally, external ears normal, TM's normal bilaterally, EAC's normal, mastoids normal and no periauricular adenopathy Face/Nose/Sinus: Normal external nose present and Nasal discharge present clear bilateral Face and sinus: normal facial exam, sinuses nontender and face symmetric Mouth: Yes Normal oral and palatal mucosa present, Yes lip normal, Yes tongue normal and Yes moist mucous membranes Throat: posterior oropharynx normal, uvula midline, postnasal drainage and no uvular edema Eyes: General: appearance normal, both eyes and all related structures Alignment and Position: alignment normal Neck: Neck: normal visual inspection, full ROM, no lymphadenopathy and no meningeal signs Chest: Chest palpation & inspection: normal inspection of the chest Resp: Effort & Inspection: normal respiratory effort and able to speak in complete sentences Auscultation: clear to auscultation bilaterally, no crackles, no rales, no rhonchi, no wheezes and diminished lung sounds bilateral in the lower lung werner Cardio: Rate: regular rate Skin: General skin exam: normal color and no rashes or lesions noted Neuro: General: patient oriented x3, gait normal, moves all extremities and no meningeal signs Cognition (Neuro): normal cognition Speech: normal speech Gait exam (Neuro): Normal gait present Extrem: General: normal to inspection, full ROM, capillary refill normal and normal gait Psych: Appearance: grossly normal and well kempt Mental Status: mental status grossly normal Speech and movement: Normal speech and movement present and Clear speech present Affect: normal affect Attitude: cooperative Course Course Level of Care: Express Care Visit Vital Signs Vital signs: Vital Signs Temperature 98.4 F 07/11/24 10:16 Pulse Rate 118 H 07/11/24 10:16 Respiratory Rate 16 07/11/24 10:16 Blood Pressure 142/92 H 07/11/24 10:16 Pulse Oximetry 99 07/11/24 10:16 Oxygen Delivery Room Air 07/11/24 10:16 Temperature 98.4 F 07/11/24 10:16 Pulse Rate 118 H 07/11/24 10:16 Respiratory Rate 16 07/11/24 10:16 Blood Pressure 142/92 H 07/11/24 10:16 Pulse Oximetry 100 07/11/24 10:26 Oxygen Delivery Room Air 07/11/24 10:26 Reviewed MDM - URI/Sore Throat MDM Narrative Medical decision making narrative: Patient sitting exam room. Patient is nontoxic vitals stable except patient mildly tachycardic. Patient presents with cough x2 days, type 1 diabetic, current blood sugar 151. Patient appropriate for outpatient treatment for bronchitis without the prednisone due to being a diabetic Discharge instructions reviewed with patient, as well as provided in writing per nursing staff. The instructions also include specific and strict return/GO TO THE ER as well as f/u information. All questions have been answered, and the patient deny any further questions with discharge and discharge plan. Some parts of this dictation were generated by voice recognition software and may contain typographical and/or grammatical inaccuracies. Differential Diagnosis Differential diagnosis: Likely upper respiratory infection, otitis media, sinusitis, viral infection, bronchitis, influenza and pharyngitis Lab Data Labs: Lab Results 07/11/24 07/11/24 Range/Units 10:12 10:20 POC Capillary Glucose 151 H (65-105) mg/dl POC Influenza A Ag Negative (Negative) POC Influenza B Ag Negative (Negative) POC SARS CoV-2 Ag Negative (Negative) Reviewed Critical Care Time Critical Care Time Critical Care Time: No Discharge Plan Discharge Clinical Impression: Bronchitis Patient Disposition: Home Condition: Stable Instructions: Antibiotic Form, Acute Bronchitis (ED) Additional Instructions: Your flu and COVID test were negative Your chest x-ray did not show signs of pneumonia It is very important to treat your symptoms. Drink plenty of water, Gatorade, Pedialyte, ice pops or Jell-O. -Alternate Tylenol and Motrin per package directions for fever or pain. You can alternate every 4 hours -Antihistamine medication such as Zyrtec/Claritin/Kassandra during the day can help improve symptoms. -doing daily nasal irrigations can help relieve pressure your sinuses. Things like a Neti pot -Use Flonase twice a day for 5 days then daily to help reduce the inflammation and dry up your sinuses. -You can also use Mucinex. Be sure to drink plenty of water with this medication at least 8 ounces with every dose and it is important to drink 8 to 10 glasses of water per day. Water is a natural decongestant -Eat and drink things that are easy to swallow, like tea or soup, or popsicles. -Oral rinses such as: Salt water gargles and/or may use topical anesthetic (eg. Chloraseptic spray) or lozenges to relieve dryness or throat pain). -Frequent hand washing or hand coffee sampler is one of the best ways to prevent spread of infection. -Using a vaporizer or humidifier at night will also help thin secretions and help with coughing up phlegm. -Follow up with primary care provider in 7-10 days if condition is not improving - For new or worsening symptoms go directly to the nearest ER Patient Language: Malay Prescriptions: New doxycycline monohydrate 100 mg tablet 100 mg PO BID Qty: 14 0RF (DME) Aerochamber MV Spacer See Rx Instructions .Route Qty: 1 0RF Rx Instructions: As directed albuterol sulfate 90 mcg/actuation HFA aerosol inhaler 2 puff inhalation QID PRN (Reason: shortness of breath or wheezing) Qty: 6.7 0RF No Action quetiapine [Seroquel] 25 mg tablet 25 mg PO QHS Qty: 30 11RF Novolog FlexPen U-100 Insulin 100 unit/mL (3 mL) insulin pen 40 unit SUB-Q DAILY 90 Days Qty: 45 3RF Rx Instructions: One unit for every 5 carbs; and 1 unit for every 50mg/dL >150mg/dL (DME) Dexcom G7 Sensor Device See Rx Instructions .ROUTE .MEDSUPPLY Qty: 9 3RF Rx Instructions: Use to monitor glcuose glucagon 3 mg/actuation spray,non-aerosol 3 mg intranasal ONCE Qty: 2 3RF Rx Instructions: as a single dose; may repeat once in 15 minutes if no response (DME) urine glucose-ketones test Strip See Rx Instructions .Route Qty: 100 0RF Rx Instructions: As directed (DME) pen needle, diabetic [BD Ultra-Fine Short Pen Needle] 31 gauge x 5/16 needle See Rx Instructions .Route Qty: 600 3RF Rx Instructions: Use to admister insulin up to 6 times a day sertraline 25 mg tablet 25 mg PO DAILY Qty: 30 11RF insulin glargine-yfgn [Semglee(insulin glarg-yfgn)Pen] 100 unit/mL (3 mL) insulin pen See Rx Instructions .ROUTE .COMPLEX Qty: 45 1RF Dose Instruction: INJECT 40 USE SUBCUTANEOUSLY EVERY DAY FOR 90 DAYS Rx Instructions: INJECT 40 USE SUBCUTANEOUSLY EVERY DAY FOR 90 DAYS Follow-up/Referrals: oTmer Álvarez MD [Primary Care Provider] - 2 Weeks ([facility] care follow up) Stand Alone Forms: Work/School Release IP Time of Disposition: 10:58
[2024-07-11 10:16] VITALS: BP 142/92; PULSE 118; RESP 16; TEMP 36.9; O2SAT 99
[2024-07-11 10:22] LABS: Glucose Point of Care 151 mg/dl (65-105)
[2024-07-11 10:26] VITALS: O2SAT 100
[2024-07-11 10:33] LABS: EDCOVIDSCREEN Negative (Negative); EDINFLUASCREEN Negative (Negative); EDINFLUBSCREEN Negative (Negative)
== END 2024-07-11 11:00 | disposition home or self-care (01) ==
PROVIDERS: Emergency Provider Nurse Practitioner; PCP Family Medicine
DX: J40 Bronchitis, not specified as acute or chronic (principal); Z20.822 Contact with and (suspected) exposure to COVID-19; F17.290 Nicotine dependence, other tobacco product, uncomplicated; E10.9 Type 1 diabetes mellitus without complications; Z79.4 Long term (current) use of insulin; E78.2 Mixed hyperlipidemia; K21.9 Gastro-esophageal reflux disease without esophagitis; Z86.16 Personal history of COVID-19
CPT/HCPCS: 71046; 82948; 87426; 87804; 99213; G0463

== ENCOUNTER 2024-10-19 09:10 | Emergency (ER) | payer BC, SELFPAY ==
--- NOTE | 2024-10-19 09:17 | ED_ITS ---
HPI - Male Genitourinary General Chief complaint: Urogenital-Male Stated complaint: UTI Time Seen by Provider: 10/19/24 09:25 Source: patient Mode of arrival: ambulatory Limitations: no limitations History of Present Illness HPI Narrative: Amador is a 29-year-old type 1 diabetic male patient presenting to the clinic today with complaints of bladder pressure, decreased urine output, and frequency. He reports symptoms started last night. Did a urine test any had ketones in his urine last night so he increase fluids and gave himself insulin and got his blood sugar down to 80. Wheeler as though he was having to get up a lot throughout the night to try to avoid and very little would come out and he would have mild relief. Did not see any ketones in his urine this morning when checking his urine. Right now his blood sugar is at 238 according to his Dexcom. Is concerned about a urinary tract infection/urinary retention. Denies any concern for STIs. Has been in a heterosexual monogamous relationship for t he past 7 years. Denies any penile discharge or testicle pain. No fevers, chills, nausea, vomiting, abdominal pain, or back pain. Blood pressure elevated in the clinic but otherwise vital signs are stable. Related Data Allergies Allergy/AdvReac Type Severity Reaction Status Date / Time No Known Allergies Allergy Verified 07/27/24 08:27 Review of Systems Review of Systems: Pertinent positives per HPI. Patient denies any fever, chills, rash, headache, visual changes, dizziness, cough, runny nose, sore throat, shortness of breath, chest pain, palpitations, nausea, vomiting, diarrhea, constipation, abdominal pain, or any urinary issues. [facility] Past Medical History Medical History BMI 26.0-26.9,adult Overweight (BMI 25.0-29.9) COVID-19 (12/16/21) 05/26/2020; 2nd episode, tested positive 12/17/2021. Insomnia Medial tibial stress syndrome Tinea pedis GERD (gastroesophageal reflux disease) Elevated liver enzymes Vitamin D insufficiency Mixed hyperlipidemia Type 1 diabetes mellitus with long-term current use of insulin Acute bronchitis URI (upper respiratory infection) Social History Social History Smoking status: Current every day smoker Tobacco type: e-cigarettes/vaping Alcohol intake: current Drinks per week: 6 Alcohol use details: beers on the weekend Substance use: never Substance use type: does not use Lack of Transportation: No Lack of Food: Never True Current Housing: I Have Housing Concerned About Future Housing: No Difficulty Paying Gas/Electric Bills: No Difficulty Paying for Meds: No Currently Unemployed: No Education: Bachelor's Degree Difficulty w/ Childcare or Family Care: No Living arrangements: with family Gender identity (if verbalized by the patient): Male Sexual Orientation (if Verbalized by the Patient): Straight or Heterosexual Spiritual care concerns: No Comments At the time of my signature, I reviewed and agree with the nursing past medical, surgical, social, and family history. There is no relevant family history pertinent to the patient complaint. Exam Narrative: General: Well-developed, well nourished, in no apparent distress. Head: Normocephalic, atraumatic. Cardio: Regular rate and rhythm, s1 and s2 normal, no murmur appreciated. Resp: Clear to auscultation bilaterally, no rhonchi, rales, wheezing or rubs. No acetone breath, respirations 20, even, nonlabored Abdomen: Soft, pliable, bowel sounds present in all quadrants, suprapubic-tender to palpation, no organomegly, no CVAT tenderness. : Deferred Course Course Emergency Course: Portions of this record may have been created with voice recognition software. Level of Care: Express Care Visit Vital Signs Vital signs: Vital Signs Temperature 37.3 C 10/19/24 09:19 Pulse Rate 88 10/19/24 09:19 Respiratory Rate 20 10/19/24 09:19 Blood Pressure 150/96 H 10/19/24 09:19 Pulse Oximetry 98 10/19/24 09:19 Oxygen Delivery Room Air 10/19/24 09:19 Temperature 37.3 C 10/19/24 09:19 Pulse Rate 88 10/19/24 09:19 Respiratory Rate 20 10/19/24 09:19 Blood Pressure 150/96 H 10/19/24 09:19 Pulse Oximetry 98 10/19/24 09:19 Oxygen Delivery Room Air 10/19/24 09:19 Vital signs reviewed MDM - Male Genitourinary MDM Narrative Medical decision making narrative: At the time of visit patient is resting comfortably on the exam table. Patient appears to be nontoxic. Complaints of bladder pressure, decreased urine output, and frequency. He reports symptoms started last night. Did a urine test any had ketones in his urine last night so he increase fluids and gave himself insul in and got his blood sugar down to 80. Wheeler as though he was having to get up a lot throughout the night to try to avoid and very little would come out and he would have mild relief. Did not see any ketones in his urine this morning when checking his urine. Right now his blood sugar is at 238 according to his Dexcom. Is concerned about a urinary tract infection/urinary retention. Denies any concern for STIs. Has been in a heterosexual monogamous relationship for the past 7 years. Denies any penile discharge or testicle pain. No fevers, chills, nausea, vomiting, abdominal pain, or back pain. Blood pressure elevated in the clinic but otherwise vital signs are stable. Urine dip ordered. Labs: Urine shows 2+ glucose, 2+ blood, and 2+ ketones. Patient's blood sugar on his Dexcom reads 238. Will send urine for culture Plan: Patient does not have definitive signs of DKA at this time. Urinalysis positive for 2+ glucose, 2+ blood, 2+ ketones. I suspect he likely has cystitis. Recommend increasing fluids and staying well hydrated and controlling blood sugars. May try using azo for symptoms. If patient develops inability to urinate he needs to go the emergency room. We will send urine for culture. Supportive measures were discussed with the patient and they voiced understanding discharge instructions and agrees to treatment plan. Return precautions reviewed Differential Diagnosis Differential diagnosis: Likely urinary tract infection, urethritis, epididymitis, prostatitis, acute retention of urine and other (Cystitis) Lab Data Labs: Lab Results 10/19/24 Range/Units 09:33 POC Urine Color Yellow POC Urine Clarity Clear POC Urine pH 5.5 POC Ur Specif [place] 1.010 POC Urine Protein Negative (Negative) POC Ur Glucose (UA) 2+ (Negative) POC Urine Ketones 2+ (Negative) POC Urine Blood 2+ (Negative) POC Urine Nitrite Negative (Negative) POC Urine Bilirubin Negative (Negative) POC Urine Urobilinogen 0.2 POC U Leukocyte Esteras Negative (Negative) Discharge Plan Discharge Clinical Impression: Cystitis, Urine ketones, Glucosuria, Hyperglycemia due to type 1 diabetes mellitus Patient Disposition: Home Condition: Stable Instructions: Antibiotic Form, Interstitial Cystitis (ED), Diabetes Type 1: Management (ED) Additional Instructions: Urine positive for ketones, glucose, and blood. We will send urine for culture. I suspect you have cystitis Keep a tight control on your blood sugar. May take vdhc-gve-bornftg azo to help alleviate symptoms-take as directed Increase fluids and stay well hydrated If symptoms worsen-worsening of pain, not able to urinate, fevers, back pain, nausea, vomiting, abdominal pain, chest pain, shortness of breath, or any other concerning symptoms go to the emergency room Follow up with your PCP in 2-3 days Patient Language: Maltese Prescriptions: No Action (DME) Aerochamber MV Spacer See Rx Instructions .Route Qty: 1 0RF Rx Instructions: As directed albuterol sulfate 90 mcg/actuation HFA aerosol inhaler 2 puff inhalation QID PRN (Reason: shortness of breath or wheezing) Qty: 6.7 0RF quetiapine [Seroquel] 25 mg tablet 25 mg PO QHS Qty: 30 11RF Novolog FlexPen U-100 Insulin 100 unit/mL (3 mL) insulin pen 40 unit SUB-Q DAILY 90 Days Qty: 45 3RF Rx Instructions: One unit for every 5 carbs; and 1 unit for every 50mg/dL >150mg/dL glucagon 3 mg/actuation spray,non-aerosol 3 mg intranasal ONCE Qty: 2 3RF Rx Instructions: as a single dose; may repeat once in 15 minutes if no response (DME) urine glucose-ketones test Strip See Rx Instructions .Route Qty: 100 0RF Rx Instructions: As directed (DME) pen needle, diabetic [BD Ultra-Fine Short Pen Needle] 31 gauge x 5/16 needle See Rx Instructions .Route Qty: 600 3RF Rx Instructions: Use to admister insulin up to 6 times a day (DME) Dexcom G7 Sensor Device See Rx Instructions .ROUTE .MEDSUPPLY Qty: 9 3RF Rx Instructions: Use to monitor glcuose insulin glargine-yfgn [Semglee(insulin glarg-yfgn)Pen] 100 unit/mL (3 mL) insulin pen See Rx Instructions .ROUTE .COMPLEX Qty: 45 1RF Dose Instruction: INJECT 40 USE SUBCUTANEOUSLY EVERY DAY FOR 90 DAYS Rx Instructions: INJECT 40 USE SUBCUTANEOUSLY EVERY DAY FOR 90 DAYS Follow-up/Referrals: Tomer Álvarez MD [Primary Care Provider] - Time of Disposition: 09:40 Quality NIHSS Nursing Documentation ED NIHSS nursing documentation: reviewed/agree
[2024-10-19 09:19] VITALS: BP 150/96; PULSE 88; RESP 20; TEMP 37.3; O2SAT 98
[2024-10-19 09:41] LABS: EDUAAPPEAR Clear; EDUABILI Negative (Negative); EDUABLOOD 2+ (Negative); EDUACOLOR1 Yellow; EDUAGLUCOSE 2+ (Negative); EDUAKETONE 2+ (Negative); EDUALEUKO Negative (Negative); EDUANITRATE Negative (Negative); EDUAPH 5.5; EDUAPROTEIN Negative (Negative); EDUASPGRAVITY 1.010; EDUAUROBILI 0.2
--- NOTE | 2024-10-19 12:30 | ED_ITS ---
HPI - Skin/Abscess/Foreign Bdy General Chief complaint: Urogenital-Male Stated complaint: UTI Time Seen by Provider: 10/19/24 09:25 Source: patient Mode of arrival: ambulatory Limitations: no limitations Related Data Allergies Allergy/AdvReac Type Severity Reaction Status Date / Time No Known Allergies Allergy Verified 10/19/24 11:29 [facility] Past Medical History Medical History BMI 26.0-26.9,adult Overweight (BMI 25.0-29.9) COVID-19 (12/16/21) 05/26/2020; 2nd episode, tested positive 12/17/2021. Insomnia Medial tibial stress syndrome Tinea pedis GERD (gastroesophageal reflux disease) Elevated liver enzymes Vitamin D insufficiency Mixed hyperlipidemia Type 1 diabetes mellitus with long-term current use of insulin Acute bronchitis URI (upper respiratory infection) Social History Social History Smoking status: Current every day smoker Tobacco type: e-cigarettes/vaping Alcohol intake: current Drinks per week: 6 Alcohol use details: beers on the weekend Substance use: never Substance use type: does not use Lack of Transportation: No Lack of Food: Never True Current Housing: I Have Housing Concerned About Future Housing: No Difficulty Paying Gas/Electric Bills: No Difficulty Paying for Meds: No Currently Unemployed: No Education: Bachelor's Degree Difficulty w/ Childcare or Family Care: No Living arrangements: with family Gender identity (if verbalized by the patient): Male Sexual Orientation (if Verbalized by the Patient): Straight or Heterosexual Spiritual care concerns: No Course Vital Signs Vital signs: Vital Signs Temperature 37.3 C 10/19/24 09:19 Pulse Rate 88 10/19/24 09:19 Respiratory Rate 20 10/19/24 09:19 Blood Pressure 150/96 H 10/19/24 09:19 Pulse Oximetry 98 10/19/24 09:19 Oxygen Delivery Room Air 10/19/24 09:19 Temperature 37.3 C 10/19/24 09:19 Pulse Rate 88 10/19/24 09:19 Respiratory Rate 20 10/19/24 09:19 Blood Pressure 150/96 H 10/19/24 09:19 Pulse Oximetry 98 10/19/24 09:19 Oxygen Delivery Room Air 10/19/24 09:19 MDM - Skin/Abscess/Foreign Bdy Lab Data Labs: Lab Results 10/19/24 Range/Units 09:33 POC Urine Color Yellow POC Urine Clarity Clear POC Urine pH 5.5 POC Ur Specif [place] 1.010 POC Urine Protein Negative (Negative) POC Ur Glucose (UA) 2+ (Negative) POC Urine Ketones 2+ (Negative) POC Urine Blood 2+ (Negative) POC Urine Nitrite Negative (Negative) POC Urine Bilirubin Negative (Negative) POC Urine Urobilinogen 0.2 POC U Leukocyte Esteras Negative (Negative) Discharge Plan Discharge Clinical Impression: Cystitis, Urine ketones, Glucosuria, Hyperglycemia due to type 1 diabetes mellitus Patient Disposition: Home Condition: Stable Instructions: Antibiotic Form, Interstitial Cystitis (ED), Diabetes Type 1: Management (ED) Additional Instructions: Urine positive for ketones, glucose, and blood. We will send urine for culture. I suspect you have cystitis Keep a tight control on your blood sugar. May take popn-cig-siveakh azo to help alleviate symptoms-take as directed Increase fluids and stay well hydrated If symptoms worsen-worsening of pain, not able to urinate, fevers, back pain, nausea, vomiting, abdominal pain, chest pain, shortness of breath, or any other concerning symptoms go to the emergency room Follow up with your PCP in 2-3 days Patient Language: Nepali Prescriptions: No Action quetiapine [Seroquel] 25 mg tablet 25 mg PO QHS Qty: 30 11RF Novolog FlexPen U-100 Insulin 100 unit/mL (3 mL) insulin pen 40 unit SUB-Q DAILY 90 Days Qty: 45 3RF Rx Instructions: One unit for every 5 carbs; and 1 unit for every 50mg/dL >150mg/dL glucagon 3 mg/actuation spray,non-aerosol 3 mg intranasal ONCE Qty: 2 3RF Rx Instructions: as a single dose; may repeat once in 15 minutes if no response (DME) urine glucose-ketones test Strip See Rx Instructions .Route Qty: 100 0RF Rx Instructions: As directed (DME) pen needle, diabetic [BD Ultra-Fine Short Pen Needle] 31 gauge x 5/16 needle See Rx Instructions .Route Qty: 600 3RF Rx Instructions: Use to admister insulin up to 6 times a day (DME) Paloma Mobile G7 Sensor Device See Rx Instructions .ROUTE .MEDSUPPLY Qty: 9 3RF Rx Instructions: Use to monitor glcuose insulin glargine-yfgn [Semglee(insulin glarg-yfgn)Pen] 100 unit/mL (3 mL) insulin pen See Rx Instructions .ROUTE .COMPLEX Qty: 45 1RF Dose Instruction: INJECT 40 USE SUBCUTANEOUSLY EVERY DAY FOR 90 DAYS Rx Instructions: INJECT 40 USE SUBCUTANEOUSLY EVERY DAY FOR 90 DAYS Follow-up/Referrals: Tomer Álvarez MD [Primary Care Provider] - Time of Disposition: 09:40
== END 2024-10-19 09:47 | disposition home or self-care (01) ==
PROVIDERS: Emergency Provider Nurse Practitioner Family; PCP Family Medicine
DX: N30.90 Cystitis, unspecified without hematuria (principal); E10.65 Type 1 diabetes mellitus with hyperglycemia; R82.4 Acetonuria; E78.2 Mixed hyperlipidemia; F17.290 Nicotine dependence, other tobacco product, uncomplicated; Z79.4 Long term (current) use of insulin
CPT/HCPCS: 81003; 87086; 99213; G0463

== ENCOUNTER 2024-10-19 11:15 | Emergency (ER) | payer BC, SELFPAY ==
--- OUTSIDE RECORDS SUMMARY | 2024-10-19 11:20 | XMS_ITS | Referral Summary ---
Author Organization [facility] Address [address] [place] [address] Phone Care Team Providers Care Semiconductor Packages Platemaker Name Role Phone Danika Toledo MD Unavailable [phone] Tomer Álvarez MD Primary Care Provider [phone] Cecilia He Unavailable [phone] Allergies No known active allergies Medications acetone, urine, test strip by in vitro route. 1 Active glucagon 3 mg/actuation spray,non-aerosol Administer 1 spray into affected nostril(s) 2 (two) times a day as needed (Hypoglycemia) 2 each 11 0 Active lancets (Microlet Lancet) miscIndications:U ncontrolled type 1 diabetes mellitus with hyperglycemia (HCC) Inject 30 units daily SQ TDD=32 units with priming 12 each 3 1 Active blood-glucose transmitter (Dexcom G6 Transmitter) deviceIndications :Uncontrolled type 1 diabetes mellitus with hyperglycemia (HCC),Insulin long-term use (HCC) Change every 3 months 1 each 3 1 Active insulin glargine (LANTUS) 100 unit/mL (3 mL) pen for injectionIndicati ons:Uncontrolled type 1 diabetes mellitus with hyperglycemia (HCC) Inject 32 units daily bedtime. TDD 32 9 mL 11 2 Active insulin aspart (NovoLOG) 100 unit/mL (3 mL) pen for injectionIndicati ons:Uncontrolled type 1 diabetes mellitus with hyperglycemia (HCC) 1:4 carb ratio with 1:25 correction for glucose >150 Tdd 90 units 90 mL 3 2 Active blood glucose diagnostic (Contour Next Test Strips) stripIndications: Uncontrolled type 1 diabetes mellitus with hyperglycemia (HCC) Check blood sugar 4 times daily 120 each 2 2 Active blood-glucose sensor (Dexcom G6 Sensor) deviceIndications :Uncontrolled type 1 diabetes mellitus with hyperglycemia (HCC),Insulin long-term use (HCC) Change every 10 days 9 each 2 Active pen needle, diabetic (Comfort EZ Pen [place]) 31 gauge x 5/16 needleIndications :Uncontrolled type 1 diabetes mellitus with hyperglycemia (HCC),Insulin long-term use (HCC) Use 4x/ day for insulin injections 400 each 1 2 Active Active Problems Problem Noted Date Diagnosed Date 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 Check Vitamin D. Assessment & Plan (06/26/2020 11:18 AM CDT): Continue multiple supplements. Defer labs at this time. Uncontrolled type 1 diabetes mellitus with hyperglycemia ([facility]/HCC) 09/27/2017 Assessment & Plan (01/30/2021 4:35 PM GOAT DRIVER): Hemoglobin A1c has improved to 6.6%, with minimal hypoglycemia. Recommend continuing Dexcom for continuous monitoring and low BG alarms. He prefers to continue MDI at this time, but when Omnipod + Dexcom integrated technology is available, he states he will consider restarting his Omnipod insulin pump. Assessment & Plan (06/26/2020 11:19 AM CDT): Glucoses above target, but will soon be starting an Omnipod pump. Will therefore defer new med schedule for now. Working on [facility]; unable to do so in the office today. Defer labs, as well, until after he has better control. Assessment & Plan (05/17/2019 7:36 AM GOAT DRIVER): Needs adjustments in insulin, providing less overnight Lantus and more mealtime NovoLog with sliding scale. Also needs multiple follow-up labs Assessment & Plan (06/02/2018 4:38 PM CDT): Diabetes is still poorly controlled and he had an event of DKA recently. He is now using his dex com G6 consistently. He met with CDE today. Please see note. He had been dosing after the meal and is willing to dose before the meal and is well aware how to carb count Will check in with his C GM next week as we were not able to fully analyze it today as he just restarted I did show him how to use the arrows in a dynamic fashion to do post meal corrections. He will be checking ketones of his blood sugars over 250 I discussed using a different basal insulin with him and will switch to Tresiba and reduce that to 18 units daily his weight is 64 kg and his total daily dose is closer to a dose of 0.65 units/kilos per day He can gradually increase the Tresiba back to 20 units daily over the course of the next week. He was given written directions Assessment & Plan (01/27/2018 3:32 PM GOAT DRIVER): Decrease Lantus to 25 u/ day TDD of insulin based on weight would be closer to 35 u/ day both basal and bolus. Will continue same novolog for now but anticipate further titration/adjustment. Starting dexcom G6 today and will review in 2 weeks again Able to see CDE today Dyslipidemia 01/26/2012 Assessment & Plan (01/30/2021 4:23 PM GOAT DRIVER): He is not on statin therapy; he states he was prescribed a medication for cholesterol in the past. Check lipid panel and consider starting statin. Assessment & Plan (06/26/2020 11:18 AM CDT): Continue statin, optimize glycemic control. Defer f/u labs until after he has better control with his new Omnipod pump. Assessment & Plan (05/17/2019 7:36 AM GOAT DRIVER): Need to optimize glycemic control, recheck lipid panel. Consider statin in the future Immunizations Immunization Administration Dates Next Due Influenza, Unspecified 01/07/2010 Meningococcal Conjugate (Menveo) 12/01/2014 Social History Tobacco Use Types Packs/Day Years Used Date Smoking Tobacco: Never Smokeless Tobacco: Never Sex and Gender Information Value Date Recorded Sex Assigned at Not on file Legal Sex Male 3:04 AM GOAT DRIVER Gender Identity Not on file Sexual Orientation Straight 10/10/2021 3: 28 PM CDT Last Filed Vital Signs Vital Sign Reading Time Taken Comments Blood Pressure 137/83 05/13/2021 9:08 AM GOAT DRIVER Pulse 104 05/13/2021 9:08 AM GOAT DRIVER Temperature 36.9 C (98.5 F) 05/13/2021 9:08 AM GOAT DRIVER Respiratory Rate 16 05/13/2021 9:08 AM GOAT DRIVER Oxygen Saturation 97% 05/13/2021 9:08 AM GOAT DRIVER Inhaled Oxygen Concentration - - Weight 77.6 kg (171 lb) 05/13/2021 9:08 AM GOAT DRIVER Height 172.7 cm (5' 8) 05/13/2021 9:08 AM GOAT DRIVER Body Mass Index 26 05/13/2021 9:08 AM GOAT DRIVER Plan of Treatment Not on file Insurance [facility] Care Teams Semiconductor Packages Platemaker Relationship Specialty Start Date End Date Tomer Álvarez MD [address] [address] PCP - General 12/26/19 Danika Toledo MD Referring Physician Endocrinology Diabetes & Metabolism 05/17/19 Cecilia He PA [address] [address] Physician Descriptive Catalog Librarian Physician Descriptive Catalog Librarian 01/30/21
--- OUTSIDE RECORDS SUMMARY | 2024-10-19 11:20 | XMS_ITS | Clinical Summary ---
Author Organization [facility] Address [address] [place] [address] Phone Care Team Providers Care Etl Bi Developer Name Role Phone Danika Toledo MD Unavailable [phone] Tomer Álvarez MD Primary Care Provider [phone] Cecilia He Unavailable [phone] Allergies No known active allergies Medications acetone, [...] Active pen needle, diabetic (Comfort EZ Pen [place]) 31 gauge x 5/16 needleIndications :Uncontrolled type 1 diabetes mellitus with hyperglycemia (HCC),Insulin long-term use (HCC) Use 4x/ day for insulin injections 400 each 1 2 Active Active Problems Problem Noted Date Diagnosed Date 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 Check Vitamin D. Assessment & Plan (06/26/2020 11:18 AM CDT): Continue multiple supplements. Defer labs at this time. Uncontrolled type 1 diabetes mellitus with hyperglycemia ([facility]/HCC) 09/27/2017 Assessment & Plan (01/30/2021 4:35 PM BLADE CHANGER): Hemoglobin A1c has improved to 6.6%, with [...] control. Assessment & Plan (05/17/2019 7:36 AM BLADE CHANGER): Needs adjustments in insulin, providing less overnight [...] directions Assessment & Plan (01/27/2018 3:32 PM BLADE CHANGER): Decrease Lantus to 25 u/ day TDD of insulin based on weight would be closer to 35 u/ day both basal and bolus. Will continue same novolog for now but anticipate further titration/adjustment. Starting dexcom G6 today and will review in 2 weeks again Able to see CDE today Dyslipidemia 01/26/2012 Assessment & Plan (01/30/2021 4:23 PM BLADE CHANGER): He is not on statin therapy; he states he was prescribed a medication for cholesterol in the past. Check lipid panel and consider starting statin. Assessment & Plan (06/26/2020 11:18 AM CDT): Continue statin, optimize glycemic control. Defer f/u labs until after he has better control with his new Omnipod pump. Assessment & Plan (05/17/2019 7:36 AM BLADE CHANGER): Need to optimize glycemic control, recheck lipid panel. Consider statin in the future Immunizations Immunization Administration Dates Next Due Influenza, Unspecified 01/07/2010 Meningococcal Conjugate (Menveo) 12/01/2014 Surgical History Surgery Date Site/Laterality Comments AR EXCISION HYDROCELE UNILATERAL Inguinal Hernia Repair With Excision Of Hydrocele - (Added by PATTY Conv) Medical History Medical History Date Comments Personal history of other di seases of the digestive system History of inguinal hernia - (Added by PATTY Conv) Family History Medical History Relation Name Comments No Known Problems Mother Relation Name Status Comments Mother Social History Tobacco Use Types Packs/Day Years Used Date Smoking Tobacco: Never Smokeless Tobacco: Never Sex and Gender Information Value Date Recorded Sex Assigned at Not on file Legal Sex Male 3:04 AM BLADE CHANGER Gender Identity Not on file Sexual Orientation Straight 10/10/2021 3: 28 PM CDT Obstetrics History Last Filed Vital Signs Vital Sign Reading Time Taken Comments Blood Pressure 137/83 05/13/2021 9:08 AM BLADE CHANGER Pulse 104 05/13/2021 9:08 AM BLADE CHANGER Temperature 36.9 C (98.5 F) 05/13/2021 9:08 AM BLADE CHANGER Respiratory Rate 16 05/13/2021 9:08 AM BLADE CHANGER Oxygen Saturation 97% 05/13/2021 9:08 AM BLADE CHANGER Inhaled Oxygen Concentration - - Weight 77.6 kg (171 lb) 05/13/2021 9:08 AM BLADE CHANGER Height 172.7 cm (5' 8) 05/13/2021 9:08 AM BLADE CHANGER Body Mass Index 26 05/13/2021 9:08 AM BLADE CHANGER Plan of Treatment Not on file Insurance [facility] Care Teams Etl Bi Developer Relationship Specialty Start Date End Date Tomer Álvarez MD [address] [address] PCP - General 12/26/19 Danika Toledo MD Referring Physician Endocrinology Diabetes & Metabolism 05/17/19 Cecilia He PA [address] [address] Physician Calender Operator Helper Physician Calender Operator Helper 01/30/21
[2024-10-19 11:23] VITALS: BP 168/113; PULSE 90; RESP 17; O2SAT 99
[2024-10-19 11:28] VITALS: BP 168/113; PULSE 90; RESP 17; O2SAT 99
[2024-10-19 11:46] LABS: Hematocrit 46.7 % (42.0-52.0); Hemoglobin 16.1 g/dL (14.0-18.0); Immature Granulocyte Percent A 0.3 % (0-0.5); Lymphocytes Absolute Auto 1.55 K/mm3 (0.9-3.2); Mean Corpuscular HGB Conc 34.5 g/dl (32-36); Mean Corpuscular Hemoglobin 30.3 pg (26-34); Mean Corpuscular Volume 87.9 fl (80-100); Nucleated Red Blood Cells Absolute Auto 0.000 K/mm3 (0.0-0.012); Nucleated Red Blood Cells Perc 0.0 % (0.0-0.2); Platelet Count Result 334 k/mm3 (150-375); Red Blood Count 5.31 M/mm3 (4.6-6.20); White Blood Count 6.1 K/mm3 (4.5-10.0)
[2024-10-19 12:08] LABS: Add Urine Microscopic? YES; Appearance Urine Clear (Clear); Glucose Urine UA 3+ mg/dL (Negative); Leukocyte Esterase Ur Negative LEU/UL (Negative); Nitrate Urine Negative (Negative); Non Pathogenic Casts 0-2; Specific Grav Ur 1.015 (1.001-1.035)
[2024-10-19 12:09] LABS: Alanine Aminotransferase 60 U/L (6-50); Albumin Level 4.9 g/dL (3.5-5.1); Alkaline Phosphatase 91 U/L (38-126); Anion Gap 15 mmol/L (4-12); Aspartate Amino Transferase 58 U/L (17-59); Bilirubin,Total 1.9 mg/dL (0.2-1.3); Blood Urea Nitrogen 10 mg/dL (9-20); Calcium 10.0 mg/dL (8.4-10.2); Carbon Dioxide 25 mmol/L (22-30); Chloride 93 mmol/L (98-107); Estimated CRCL calculation 127 ml/min; Estimated Glomerular Filt Rate > 60; Glucose 224 mg/dL (65-110); Magnesium 1.7 mg/dL (1.6-2.3); Potassium 4.1 mmol/L (3.4-5.0); Sodium 133 mmol/L (137-145); Total Protein 8.7 g/dL (6.3-8.2)
--- OUTSIDE RECORDS SUMMARY | 2024-10-19 12:18 | XMS_ITS | Referral Summary ---
Author Organization [facility] Address [address] [place] [address] Phone Care Team Providers Care In Store Marketing Representative Name Role Phone Danika Toledo MD Unavailable [phone] Tomer Álvarez MD Primary Care Provider [phone] Cecilia He Unavailable [phone] Allergies No known active allergies Medications acetone, [...] Active pen needle, diabetic (Comfort EZ Pen [place]) 31 gauge x 5/16 needleIndications :Uncontrolled type 1 diabetes mellitus with hyperglycemia (HCC),Insulin long-term use (HCC) Use 4x/ day for insulin injections 400 each 1 2 Active Active Problems Problem Noted Date Diagnosed Date 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 Check Vitamin D. Assessment & Plan (06/26/2020 11:18 AM CDT): Continue multiple supplements. Defer labs at this time. Uncontrolled type 1 diabetes mellitus with hyperglycemia ([facility]/HCC) 09/27/2017 Assessment & Plan (01/30/2021 4:35 PM NUTRITION PROFESSOR): Hemoglobin A1c has improved to 6.6%, with [...] control. Assessment & Plan (05/17/2019 7:36 AM NUTRITION PROFESSOR): Needs adjustments in insulin, providing less overnight [...] directions Assessment & Plan (01/27/2018 3:32 PM NUTRITION PROFESSOR): Decrease Lantus to 25 u/ day TDD of insulin based on weight would be closer to 35 u/ day both basal and bolus. Will continue same novolog for now but anticipate further titration/adjustment. Starting dexcom G6 today and will review in 2 weeks again Able to see CDE today Dyslipidemia 01/26/2012 Assessment & Plan (01/30/2021 4:23 PM NUTRITION PROFESSOR): He is not on statin therapy; he states he was prescribed a medication for cholesterol in the past. Check lipid panel and consider starting statin. Assessment & Plan (06/26/2020 11:18 AM CDT): Continue statin, optimize glycemic control. Defer f/u labs until after he has better control with his new Omnipod pump. Assessment & Plan (05/17/2019 7:36 AM NUTRITION PROFESSOR): Need to optimize glycemic control, recheck lipid panel. Consider statin in the future Immunizations Immunization Administration Dates Next Due Influenza, Unspecified 01/07/2010 Meningococcal Conjugate (Menveo) 12/01/2014 Social History Tobacco Use Types Packs/Day Years Used Date Smoking Tobacco: Never Smokeless Tobacco: Never Sex and Gender Information Value Date Recorded Sex Assigned at Not on file Legal Sex Male 3:04 AM NUTRITION PROFESSOR Gender Identity Not on file Sexual Orientation Straight 10/10/2021 3: 28 PM CDT Last Filed Vital Signs Vital Sign Reading Time Taken Comments Blood Pressure 137/83 05/13/2021 9:08 AM NUTRITION PROFESSOR Pulse 104 05/13/2021 9:08 AM NUTRITION PROFESSOR Temperature 36.9 C (98.5 F) 05/13/2021 9:08 AM NUTRITION PROFESSOR Respiratory Rate 16 05/13/2021 9:08 AM NUTRITION PROFESSOR Oxygen Saturation 97% 05/13/2021 9:08 AM NUTRITION PROFESSOR Inhaled Oxygen Concentration - - Weight 77.6 kg (171 lb) 05/13/2021 9:08 AM NUTRITION PROFESSOR Height 172.7 cm (5' 8) 05/13/2021 9:08 AM NUTRITION PROFESSOR Body Mass Index 26 05/13/2021 9:08 AM NUTRITION PROFESSOR Plan of Treatment Not on file Insurance [facility] Care Teams In Store Marketing Representative Relationship Specialty Start Date End Date Tomer Álvarez MD [address] [address] PCP - General 12/26/19 Danika Toledo MD Referring Physician Endocrinology Diabetes & Metabolism 05/17/19 Cecilia He PA [address] [address] Physician Executive Admin Physician Executive Admin 01/30/21
--- OUTSIDE RECORDS SUMMARY | 2024-10-19 12:18 | XMS_ITS | Clinical Summary ---
Author Organization [facility] Address [address] [place] [address] Phone Care Team Providers Care Property And Casualty Insurance Agent Name Role Phone Danika Toledo MD Unavailable [phone] Tomer Álvarez MD Primary Care Provider [phone] Cecilia He Unavailable [phone] Allergies No known active allergies Medications acetone, [...] Active pen needle, diabetic (Comfort EZ Pen [place]) 31 gauge x 5/16 needleIndications :Uncontrolled type 1 diabetes mellitus with hyperglycemia (HCC),Insulin long-term use (HCC) Use 4x/ day for insulin injections 400 each 1 2 Active Active Problems Problem Noted Date Diagnosed Date 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 Check Vitamin D. Assessment & Plan (06/26/2020 11:18 AM CDT): Continue multiple supplements. Defer labs at this time. Uncontrolled type 1 diabetes mellitus with hyperglycemia ([facility]/HCC) 09/27/2017 Assessment & Plan (01/30/2021 4:35 PM SENIOR REGULATORY AFFAIRS SPECIALIST): Hemoglobin A1c has improved to 6.6%, with [...] control. Assessment & Plan (05/17/2019 7:36 AM SENIOR REGULATORY AFFAIRS SPECIALIST): Needs adjustments in insulin, providing less overnight [...] directions Assessment & Plan (01/27/2018 3:32 PM SENIOR REGULATORY AFFAIRS SPECIALIST): Decrease Lantus to 25 u/ day TDD of insulin based on weight would be closer to 35 u/ day both basal and bolus. Will continue same novolog for now but anticipate further titration/adjustment. Starting dexcom G6 today and will review in 2 weeks again Able to see CDE today Dyslipidemia 01/26/2012 Assessment & Plan (01/30/2021 4:23 PM SENIOR REGULATORY AFFAIRS SPECIALIST): He is not on statin therapy; he states he was prescribed a medication for cholesterol in the past. Check lipid panel and consider starting statin. Assessment & Plan (06/26/2020 11:18 AM CDT): Continue statin, optimize glycemic control. Defer f/u labs until after he has better control with his new Omnipod pump. Assessment & Plan (05/17/2019 7:36 AM SENIOR REGULATORY AFFAIRS SPECIALIST): Need to optimize glycemic control, recheck lipid panel. Consider statin in the future Immunizations Immunization Administration Dates Next Due Influenza, Unspecified 01/07/2010 Meningococcal Conjugate (Menveo) 12/01/2014 Surgical History Surgery Date Site/Laterality Comments MD EXCISION HYDROCELE UNILATERAL Inguinal Hernia Repair With [...] on file Legal Sex Male 3:04 AM SENIOR REGULATORY AFFAIRS SPECIALIST Gender Identity Not on file Sexual Orientation Straight 10/10/2021 3: 28 PM CDT Obstetrics History Last Filed Vital Signs Vital Sign Reading Time Taken Comments Blood Pressure 137/83 05/13/2021 9:08 AM SENIOR REGULATORY AFFAIRS SPECIALIST Pulse 104 05/13/2021 9:08 AM SENIOR REGULATORY AFFAIRS SPECIALIST Temperature 36.9 C (98.5 F) 05/13/2021 9:08 AM SENIOR REGULATORY AFFAIRS SPECIALIST Respiratory Rate 16 05/13/2021 9:08 AM SENIOR REGULATORY AFFAIRS SPECIALIST Oxygen Saturation 97% 05/13/2021 9:08 AM SENIOR REGULATORY AFFAIRS SPECIALIST Inhaled Oxygen Concentration - - Weight 77.6 kg (171 lb) 05/13/2021 9:08 AM SENIOR REGULATORY AFFAIRS SPECIALIST Height 172.7 cm (5' 8) 05/13/2021 9:08 AM SENIOR REGULATORY AFFAIRS SPECIALIST Body Mass Index 26 05/13/2021 9:08 AM SENIOR REGULATORY AFFAIRS SPECIALIST Plan of Treatment Not on file Insurance [facility] Care Teams Property And Casualty Insurance Agent Relationship Specialty Start Date End Date Tomer Álvarez MD [address] [address] PCP - General 12/26/19 Danika Toledo MD Referring Physician Endocrinology Diabetes & Metabolism 05/17/19 Cecilia He PA [address] [address] Physician Sewage Reticulation Drafting Officer Physician Sewage Reticulation Drafting Officer 01/30/21
[2024-10-19 12:22] LABS: Beta-Hydroxybutyrate/Acetoacetate 3.03 mmol/L (0.02-0.27)
[2024-10-19] MEDS: POTASSIUM CHLORIDE 20 MEQ ER TABLET 40 MEQ PO (12:29)
[2024-10-19] MEDS: LACTATED RINGERS 1,000 ML 999 ML IV CONT ×2 (12:30)
[2024-10-19] MEDS: INSULIN HUMAN REGULAR (*BKC) 100 UNITS/ML 7.1 UNITS IV PUSH (12:31)
--- NOTE | 2024-10-19 12:46 | ED_ITS ---
HPI - Recheck/Abnormal Lab/Rx General Chief Complaint: Recheck/Abnormal Lab/Rx Stated Complaint: ELEVATED BLOOD SUGARS Time Seen by Provider: 10/19/24 12:01 History of Present Illness HPI narrative: Patient with history of type 1 diabetes presents here with concern for DKA, he had been feeling slightly nauseous, having some trouble urinating, and then noticed that he had some ketones in his urine. Tried giving additional insulin to himself and drinking more water Related Data Allergies Allergy/AdvReac Type Severity Reaction Status Date / Time No Known Allergies Allergy Verified 10/19/24 11:29 Review of Systems 2 Review of Systems: All systems reviewed & are unremarkable except as noted in HPI and below PMFSH Past Medical History Medical History BMI 26.0-26.9,adult Overweight (BMI 25.0-29.9) COVID-19 (12/16/21) 05/26/2020; 2nd episode, tested positive 12/17/2021. Insomnia Medial tibial stress syndrome Tinea pedis GERD (gastroesophageal reflux disease) Elevated liver enzymes Vitamin D insufficiency Mixed hyperlipidemia Type 1 diabetes mellitus with long-term current use of insulin Acute bronchitis URI (upper respiratory infection) Social History Social History Smoking status: Current every day smoker Tobacco type: e-cigarettes/vaping Alcohol intake: current Drinks per week: 6 Alcohol use details: beers on the weekend Substance use: never Substance use type: does not use Lack of Transportation: No Lack of Food: Never True Current Housing: I Have Housing Concerned About Future Housing: No Difficulty Paying Gas/Electric Bills: No Difficulty Paying for Meds: No Currently Unemployed: No Education: Bachelor's Degree Difficulty w/ Childcare or Family Care: No Living arrangements: with family Gender identity (if verbalized by the patient): Male Sexual Orientation (if Verbalized by the Patient): Straight or Heterosexual Spiritual care concerns: No Exam 2 Narrative: EXAMINATION OF ORGAN SYSTEMS/BODY AREAS: Constitutional: Vital signs per nursing GENERAL:[No acute distress, non-toxic appearing.] HEAD: Normal with no signs of head trauma. EYES: EOMI, conjunctiva normal ENT: Hearing grossly intact LUNGS: Nonlabored breathing. HEART: [Regular rate and rhythm] ABD: [Soft], [nontender to palpation] EXT: Normal range of motion SKIN: [No rashes or lesions.] NEURO: [Alert and oriented x 3. No gross focal sensory or strength deficits.] PSYCH: Normal affect Course Vital Signs Vital signs: Vital Signs Pulse Rate 90 10/19/24 11:23 Respiratory Rate 17 10/19/24 11:23 Blood Pressure 168/113 H 10/19/24 11:23 Pulse Oximetry 99 10/19/24 11:23 Oxygen Delivery Room Air 10/19/24 11:23 Pulse Rate 86 10/19/24 16:43 Respiratory Rate 17 10/19/24 16:43 Blood Pressure 140/97 H 10/19/24 16:43 Pulse Oximetry 98 10/19/24 16:43 Oxygen Delivery Room Air 10/19/24 11:23 MDM - Recheck/Abnormal Lab/Rx MDM Narrative Medical decision making narrative: Pt h/o T1D c/b DKA p/w s/s c/w DKA, ketones today and high CBG. He is well-appearing here, initially low nauseous, labs do show ketones and beta hydroxybutyrate elevated. Fluids given, insert given, and thankfully, re- evaluation, patient states he feels great, symptoms completely resolved. Repeat BMP now shows gap has closed, bicarb is normal, and blood sugar is normal. At this point, he feels quite comfortable going home, he has insulin, is capable of checking his blood sugars with his Dexcom continuously, as well as checking himself for ketones, with close follow-up to his PCP and with strict return precautions. Lab Data 10/19/24 11:41 10/19/24 15:28 Labs: Lab Results 10/19/24 10/19/24 10/19/24 Range/Units 11:22 11:41 11:46 WBC 6.1 (4.5-10.0) K/mm3 RBC 5.31 (4.6-6.20) M/mm3 Hgb 16.1 (14.0-18.0) g/dL Hct 46.7 (42.0-52.0) % MCV 87.9 (80-100) fl MCH 30.3 (26-34) pg MCHC 34.5 (32-36) g/dl RDW 12.0 (11.5-14.5) % Plt Count 334 (150-375) k/mm3 MPV 8.7 (7.4-10.4) fl Immature Gran % (Auto) 0.3 (0-0.5) % Neut % (Auto) 64.2 (45.5-73.1) % Lymph % (Auto) 25.3 (18.3-44.2) % [place] % (Auto) 7.5 (2.6-8.5) % Eos % (Auto) 2.0 (0-4.4) % Baso % (Auto) 0.7 (0.2-1.2) % Lymph # (Auto) 1.55 (0.9-3.2) K/mm3 [place] # (Auto) 0.5 (0.1-0.6) K/mm3 Eos # (Auto) 0.1 (0-0.3) K/mm3 Baso # (Auto) 0.0 (0.0-0.1) K/mm3 Abs Immat Gran (auto) 0.02 (0.00-0.031) K/mm3 Absolute Neuts (auto) 3.9 (1.3-6.7) K/mm3 Absolute Nucleated RBC 0.000 (0.0-0.012) K/mm3 Nucleated RBC % 0.0 (0.0-0.2) % Sodium 133 L (137-145) mmol/L Potassium 4.1 (3.4-5.0) mmol/L Chloride 93 L (98-107) mmol/L Carbon Dioxide 25 (22-30) mmol/L Anion Gap 15 H (4-12) mmol/L BUN 10 (9-20) mg/dL Creatinine 0.73 (0.7-1.3) mg/dL Estim Creat Clear Calc 127 ml/min Estimated GFR > 60 (59 - ) Glucose 224 H (65-110) mg/dL POC Capillary Glucose 230 H (65-105) mg/dl Calcium 10.0 (8.4-10.2) mg/dL Phosphorus 3.4 (2.5-4.5) mg/dL Magnesium 1.7 (1.6-2.3) mg/dL Total Bilirubin 1.9 H (0.2-1.3) mg/dL AST 58 (17-59) U/L ALT 60 H (6-50) U/L Alkaline Phosphatase 91 (38-126) U/L Total Protein 8.7 H (6.3-8.2) g/dL Albumin 4.9 (3.5-5.1) g/dL Beta-Hydroxybutyrate/Acetoacetate 3.03 H (0.02-0.27) mmol/L Urine Color Yellow (Yellow) Urine Appearance Clear (Clear) Urine pH 5.5 (5.0-9.0) Ur Specific [place] 1.015 (1.001-1.035) Urine Protein Negative (Negative) mg/dL Urine Glucose (UA) 3+ H (Negative) mg/dL Urine Ketones 2+ H (Negative) mg/dL Ur Blood (Man) Trace (Negative) Urine Nitrate Negative (Negative) Urine Bilirubin Negative (Negative) Urine Urobilinogen 0.2 (<2.0) mg/dL Leukocyte Esterase Rfl Negative (Negative) JANENE/UL Urine RBC 0-2 (0-2) /hpf Urine WBC 0-5 (0-3) /hpf Ur Squamous Epith Cells None seen (Few) /hpf Urine Bacteria None seen /hpf Urine Casts 0-2 10/19/24 10/19/24 Range/Units 14:06 15:28 WBC (4.5-10.0) K/mm3 RBC (4.6-6.20) M/mm3 Hgb (14.0-18.0) g/dL Hct (42.0-52.0) % MCV (80-100) fl MCH (26-34) pg MCHC (32-36) g/dl RDW (11.5-14.5) % Plt Count (150-375) k/mm3 MPV (7.4-10.4) fl Immature Gran % (Auto) (0-0.5) % Neut % (Auto) (45.5-73.1) % Lymph % (Auto) (18.3-44.2) % [place] % (Auto) (2.6-8.5) % Eos % (Auto) (0-4.4) % Baso % (Auto) (0.2-1.2) % Lymph # (Auto) (0.9-3.2) K/mm3 [place] # (Auto) (0.1-0.6) K/mm3 Eos # (Auto) (0-0.3) K/mm3 Baso # (Auto) (0.0-0.1) K/mm3 Abs Immat Gran (auto) (0.00-0.031) K/mm3 Absolute Neuts (auto) (1.3-6.7) K/mm3 Absolute Nucleated RBC (0.0-0.012) K/mm3 Nucleated RBC % (0.0-0.2) % Sodium 134 L (137-145) mmol/L Potassium 4.2 (3.4-5.0) mmol/L Chloride 100 (98-107) mmol/L Carbon Dioxide 27 (22-30) mmol/L Anion Gap 7 (4-12) mmol/L BUN 9 (9-20) mg/dL Creatinine 0.64 L (0.7-1.3) mg/dL Estim Creat Clear Calc 143 ml/min Estimated GFR > 60 (59 - ) Glucose 119 H (65-110) mg/dL POC Capillary Glucose 115 H (65-105) mg/dl Calcium 9.7 (8.4-10.2) mg/dL Phosphorus (2.5-4.5) mg/dL Magnesium (1.6-2.3) mg/dL Total Bilirubin (0.2-1.3) mg/dL AST (17-59) U/L ALT (6-50) U/L Alkaline Phosphatase (38-126) U/L Total Protein (6.3-8.2) g/dL Albumin (3.5-5.1) g/dL Beta-Hydroxybutyrate/Acetoacetate (0.02-0.27) mmol/L Urine Color (Yellow) Urine Appearance (Clear) Urine pH (5.0-9.0) Ur Specific [place] (1.001-1.035) Urine Protein (Negative) mg/dL Urine Glucose (UA) (Negative) mg/dL Urine Ketones (Negative) mg/dL Ur Blood (Man) (Negative) Urine Nitrate (Negative) Urine Bilirubin (Negative) Urine Urobilinogen (<2.0) mg/dL Leukocyte Esterase Rfl (Negative) JANENE/UL Urine RBC (0-2) /hpf Urine WBC (0-3) /hpf Ur Squamous Epith Cells (Few) /hpf Urine Bacteria /hpf Urine Casts ABG Data ABG results: 10/19/24 12:59 VBG pH 7.430 H* VBG pCO2 36.1 L VBG pO2 48.1 H VBG HCO3 23.4 L O2 Delivery Device Room air O2 Liters/Min Not Reportable FiO2 21 Critical Care Time Critical Care Time Critical Care Time: Yes Total Critical Care Time: 31 Discharge Plan Discharge Clinical Impression: DKA (diabetic ketoacidosis) Patient Disposition: Home Condition: Stable Instructions: Diabetic Ketoacidosis (DC) Additional Instructions: You came in in diabetic ketoacidosis, thankfully after fluids and insulin here, your labs are not back to normal. Please make sure that you are drinking plenty of fluids, make sure that you check your blood sugar at home and give yourself your insulin as prescribed, if you start having symptoms again or anything else concerning, please return to the emergency room immediately. Please follow-up with your primary care doctor in the next 1-2 days. Patient Language: [place] Citizen Prescriptions: No Action quetiapine [Seroquel] 25 mg tablet 25 mg PO QHS Qty: 30 11RF Novolog FlexPen U-100 Insulin 100 unit/mL (3 mL) insulin pen 40 unit SUB-Q DAILY 90 Days Qty: 45 3RF Rx Instructions: One unit for every 5 carbs; and 1 unit for every 50mg/dL >150mg/dL glucagon 3 mg/actuation spray,non-aerosol 3 mg intranasal ONCE Qty: 2 3RF Rx Instructions: as a single dose; may repeat once in 15 minutes if no response (DME) urine glucose-ketones test Strip See Rx Instructions .Route Qty: 100 0RF Rx Instructions: As directed (DME) pen needle, diabetic [BD Ultra-Fine Short Pen Needle] 31 gauge x 5/16 needle See Rx Instructions .Route Qty: 600 3RF Rx Instructions: Use to admister insulin up to 6 times a day (DME) Dexcom G7 Sensor Device See Rx Instructions .ROUTE .MEDSUPPLY Qty: 9 3RF Rx Instructions: Use to monitor glcuose insulin glargine-yfgn [Semglee(insulin glarg-yfgn)Pen] 100 unit/mL (3 mL) insulin pen See Rx Instructions .ROUTE .COMPLEX Qty: 45 1RF Dose Instruction: INJECT 40 USE SUBCUTANEOUSLY EVERY DAY FOR 90 DAYS Rx Instructions: INJECT 40 USE SUBCUTANEOUSLY EVERY DAY FOR 90 DAYS Follow-up/Referrals: Tomer Álvarez MD [Primary Care Provider] - 2 Days
[2024-10-19 12:55] VITALS: BP 139/90; PULSE 107; RESP 16; O2SAT 100
[2024-10-19 13:04] LABS: Fractional Inspired Oxygen 21 %; HCO3 VBG 23.4 mEq/l (24.0-30.0); PCO2 VBG 36.1 mmHg (42.0-48.0); PO2 VBG 48.1 mmHg (35.0-45.0)
[2024-10-19 13:05] LABS: pH VBG 7.430 (7.300-7.400)
[2024-10-19 13:59] VITALS: BP 167/94; PULSE 85; RESP 16; O2SAT 100
[2024-10-19 15:08] VITALS: BP 129/94; PULSE 79; RESP 16; O2SAT 100
[2024-10-19 15:44] LABS: Anion Gap 7 mmol/L (4-12); Blood Urea Nitrogen 9 mg/dL (9-20); Calcium 9.7 mg/dL (8.4-10.2); Carbon Dioxide 27 mmol/L (22-30); Chloride 100 mmol/L (98-107); Estimated CRCL calculation 143 ml/min; Estimated Glomerular Filt Rate > 60; Glucose 119 mg/dL (65-110); Potassium 4.2 mmol/L (3.4-5.0); Sodium 134 mmol/L (137-145)
[2024-10-19 16:43] VITALS: BP 140/97; PULSE 86; RESP 17; O2SAT 98
== END 2024-10-19 16:46 | disposition home or self-care (01) ==
PROVIDERS: Emergency Medicine; Emergency Provider Emergency Medicine; PCP Family Medicine
DX: E10.10 Type 1 diabetes mellitus with ketoacidosis without coma (principal); E55.9 Vitamin D deficiency, unspecified; E78.2 Mixed hyperlipidemia; K21.9 Gastro-esophageal reflux disease without esophagitis; F17.290 Nicotine dependence, other tobacco product, uncomplicated; Z86.16 Personal history of COVID-19; Z79.899 Other long term (current) drug therapy; Z79.4 Long term (current) use of insulin
CPT/HCPCS: 36415; 80048; 80053; 81001; 82010; 82803; 82948; 83735; 84100; 85025; 96361; 96374; 99284; A9270; J1815; J7120